=== PATIENT | female | born 1985 | race Caucasian/White ===

== ENCOUNTER 2019-04-29 11:05 | Day surgery (SDC) | payer BC ==
[2019-04-29 11:41] LABS: Absolute Lymphocytes (CBC) 2.6 K/uL (0.7-4.9); Basophils % 0.6 % (0-1.3); Hematocrit 40.1 % (36.0-45.0); Lymphocytes % 20.9 % (15.3-44.8); MPV 8.4 fL (7.6-11.3); RBC Red Blood Cell Count 4.38 M/uL (3.86-4.86)
[2019-04-29] MEDS ORDERED: Ringers Lactate 1,000 ML IV ONE (11:44)
[2019-04-29] MEDS ORDERED: METHYLENE BLUE 0.5% 10 ML AMP ONE (12:04)
[2019-04-29] MEDS ORDERED: FENTANYL CITR 100 MCG/2 ML ONE ×2 (12:09→12:24)
[2019-04-29] MEDS ORDERED: MIDAZOLAM HCL 2 MG/2 ML INJ ONE (12:24)
[2019-04-29] MEDS ORDERED: LIDOCAINE 2% MPF 5 ML VIAL ONE (12:24)
[2019-04-29] MEDS ORDERED: PROPOFOL 200 MG/20 ML VIAL IV ONE (12:24)
[2019-04-29] MEDS ORDERED: ROCURONIUM 50 MG/5 ML VIAL IV ONE (12:24)
[2019-04-29] MEDS: CEFAZOLIN/SWI 1gm 1 GM/10 ML SYR ONE ×3 (12:55→13:15)
[2019-04-29] MEDS ORDERED: GLYCOPYRROLATE 0.2 MG/ML SYR ONE (13:27)
[2019-04-29] MEDS ORDERED: ONDANSETRON 4 MG/2 ML VIAL ONE (13:27)
[2019-04-29] MEDS ORDERED: KETOROLAC 30 MG/ML INJ ONE (13:27)
[2019-04-29] MEDS ORDERED: NEOSTIGMINE 1 MG/ML -5 ML ONE (13:27)
[2019-04-29] MEDS: HYDROMORPHONE HCL 1 MG/ML INJ ONE ×2 (14:05→14:15)
[2019-04-29 14:18] VITALS: O2SAT 96
[2019-04-29] MEDS ORDERED: HYDROCODONE/APAP 7.5/325 MG TAB ONE (14:40)
[2019-04-29 14:56] VITALS: BP 110/80; TEMP 98
--- NOTE | 2019-04-30 01:08 | OP ---
Date of Procedure: 04/29/2019 Surgeon: Daljit Mcneil MD Preoperative Diagnosis: Infected pilonidal cyst. Postoperative Diagnosis: Infected pilonidal cyst. Procedure: Wide excision of pilonidal infected cyst with layered closure. Estimated Blood Loss: Minimal. Specimens: Pus and cyst. Findings: As above. Anesthesia: General. Complications: None. Drains: [place] quarter-inch. Disposition: Patient tolerated the procedure, in stable condition, taken to Recovery in good general condition. Procedure In Detail: Patient was brought to the OR and placed in supine position. General anesthesi a was begun. Patient was placed in the prone position, prepped and draped in usual sterile fashion. Marcaine 0.5% was infiltrated locally. A 15 blade was used to make an incision approximately 6 x 3 cm to excise the entire cyst, which was infected, which was red, tender, fluctuant. The incision sushil t all the way around the infected cyst all the way down to the presacral fascia and there was pus in it. Once it was excised, cultures were done. Entire cyst sent to Pathology. Wound irrigated. Blee ding controlled with cautery and then flaps created and 2-0 chromic used to approximate the subcutane ous tissue after a quarter-inch [place] drain was placed and secured with 3-0 nylon and 3-0 nylon use d to loosely close the skin. Sterile dressing was applied. Patient was awakened and taken to Recove ry in good general condition. Discharge Note: Patient will go to day surgery and home when stable. Disposition: Home. Condition: Stable. Discharge Instructions: Resume home medications and diet. Activity as tolerated. No heavy lifting. Remove outer dressing in 2 days. Shower. Keep wound clean and dry. Dry gauze to wound daily. Ty lenol No. 3 one tablet p.o. q.4 p.r.n. pain, Keflex 500 mg p.o. q.6 h. /MODL Voice ID: [id number] Report ID: [id number]
== END 2019-04-29 15:20 | disposition home or self-care (01) ==
LOC: OR 11:05
PROVIDERS: ATTEND Surgery
PROC: 0JB90ZZ Excision of Buttock Subcutaneous Tissue and Fascia, Open Approach (ICD-10-PCS; principal; 2019-04-29 12:45)
DX: L05.91 Pilonidal cyst without abscess (principal); I10 Essential (primary) hypertension; E66.9 Obesity, unspecified; Z68.30 Body mass index [BMI] 30.0-30.9, adult; F32.9 Major depressive disorder, single episode, unspecified; F17.200 Nicotine dependence, unspecified, uncomplicated
CPT/HCPCS: 87070; 85025; 36415; 87205; 81025; 88304; 87075; 11771; J2704; J2250; J3010 ×2; J1170; J2710; J0690; J7120; J2405

== ENCOUNTER 2021-02-09 18:41 | Emergency (ER) | payer BC, SELFPAY ==
--- OUTSIDE RECORDS SUMMARY | 2021-02-09 18:44 | XMS REPORT | Continuity of Care Document ---
:[address] [facility] t Address [address] [place] [address] Care Team Providers Name Role Phone FREDDIE BURLESON Attending Clinician Unavailable Problems This patient has no known problems. Allergies, Adverse Reactions, Alerts This patient has no known allergies or adverse reactions. Medications This patient has no known medications. Procedures This patient has no known procedures. Encounters Start End Encounter Admission Attending Care Care Encounter Source Date/Time Date/Time Type Type Clinicians Facility Department ID 2021-01-12 2021-01-12 Outpatient SANDRA BURLESON [id number] Sandra 11:30:00 11:30:00 ALCON sen 2021-01-12 2021-01-12 Outpatient SANDRA BURLESON [id number] Sandra 08:30:00 08:30:00 ALCON sen Results This patient has no known results.
[2021-02-09] MEDS ORDERED: IBUPROFEN 400 MG TAB ONE (22:07)
[2021-02-09] MEDS ORDERED: CLINDAMYCIN 900MG/D5W 900 MG/50 ML IVPB IV ONE (22:45)
[2021-02-09] MEDS ORDERED: ONDANSETRON 4 MG/2 ML VIAL ONE (22:45)
[2021-02-09] MEDS ORDERED: MORPHINE 4 MG/ML SYR ONE (22:45)
[2021-02-09] MEDS ORDERED: NA CHLORIDE 0.9% 1,000 ML ONE (22:45)
[2021-02-09 22:54] LABS: Absolute Lymphocytes (CBC) 2.1 K/uL (0.7-4.9); Basophils % 0.3 % (0-1.3); Hematocrit 39.7 % (36.0-45.0); Lymphocytes % 21.7 % (15.3-44.8); MPV 7.6 fL (7.6-11.3); RBC Red Blood Cell Count 4.45 M/uL (3.86-4.86)
[2021-02-09 22:56] LABS: Potassium 4.2 mmol/L (3.5-5.1)
--- NOTE | 2021-02-09 23:51 | EDPHYS ---
[facility] Name: Luanne Carlin Age: 35 yrs Sex: Female : 1985 Arrival Date: 02/09/2021 Time: 18:46 Bed DX1 Private MD: ED Physician Sushant Mosley HPI: 02/09 23:43 This 35 yrs old Female presents to ER via Ambulatory with complaints of pkl Facial Swelling. 23:43 The patient presents with broken tooth/teeth, pain, swelling. Onset: The pkl symptoms/episode began/occurred today. Associated signs and symptoms: Pertinent positives: swelling, facial. 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 - Social history:: Smoking status: Patient reports the use of cigarette tobacco products, denies chronic smoking, but will smoke occasionally. ROS: 23:43 Eyes: Negative for injury, pain, redness, and discharge. pkl 23:43 ENT: Positive for dental pain, swelling left side face. 23:43 Neck: Negative for stiffness. 23:43 Cardiovascular: Negative for chest pain. 23:43 Respiratory: Negative for cough, shortness of breath. 23:43 Abdomen/GI: Negative for abdominal pain, nausea, vomiting, and diarrhea. 23:43 Back: Negative for acute changes. 23:43 : Negative for urinary symptoms. 23:43 MS/extremity: Negative for acute changes. 23:43 Skin: Negative for rash. 23:43 Neuro: Negative for altered mental status, loss of consciousness. Exam: 23:43 Eyes: Pupils equal round and reactive to light, extra-ocular motions intact. Lids and pkl lashes normal. Conjunctiva and sclera are non-icteric and not injected. Cornea within normal limits. Periorbital areas with no swelling, redness, or edema. 23:43 Head/face: Noted is swelling, that is mild, of the left side face. 23:43 Neck: Exam negative for nuchal rigidity. 23:43 Chest/axilla: Exam negative for acute changes. 23:43 Cardiovascular: Rate: normal, Rhythm: regular. 23:43 Respiratory: the patient does not display signs of respiratory distress, Respirations: normal, Breath sounds: are clear throughout. 23:43 Abdomen/GI: Exam negative for acute changes. 23:43 Back: Exam negative for acute changes. 23:43 : Exam negative for acute changes. 23:43 Musculoskeletal/extremity: Exam is negative for acute changes. 23:43 Skin: Exam negative for rash. 23:43 Neuro: Orientation: is normal, Mentation: is normal, Cranial nerves: grossly normal, Motor: is normal. Vital Signs: 18:50 BP 131 / 79; Pulse 74; Resp 16; Temp 99(O); Pulse Ox 100% ; Weight 108.86 kg; Height 5 sv ft. 5 in. (165.10 cm); Pain 5/10; 21:59 BP 132 / 82; Pulse 65; Resp 15; Pulse Ox 99% ; dh4 23:45 BP 112 / 65; Pulse 62; Resp 16; Pulse Ox 97% on R/A; dh4 18:50 Body Mass Index 39.94 (108.86 kg, 165.10 cm) sv MDM: 21:44 Patient medically screened. pkl 23:49 Data reviewed: vital signs, nurses notes, lab test result(s). ED course: Patient pkl feeling better. Advised to follow up with her Dentist in 1 to 2 days. Patient understood instructions. 02/09 22:01 Order name: CBC with Diff; Complete Time: 23:39 pkl 02/09 22:01 Order name: Chem 7; Complete Time: 23:39 pkl Administered Medications: 21:45 Drug: Ibuprofen 800 mg Route: PO; kg 22:19 Follow up: Response: No adverse reaction bb 22:18 Drug: NS 0.9% 1000 ml Route: IV; Rate: 1000 ml; Site: right antecubital; bb 23:54 Follow up: IV Status: Completed infusion; IV Intake: 1000ml bb 22:18 Drug: morphine 4 mg Route: IVP; Site: right antecubital; bb 23:55 Follow up: Response: No adverse reaction; Pain is decreased; RASS: Alert and Calm (0) bb 22:18 Drug: Zofran (Ondansetron) 4 mg Route: IVP; Site: right antecubital; bb 23:55 Follow up: Response: No adverse reaction bb 22:19 Drug: Clindamycin 900 mg Route: IVPB; Infused Over: 30 mins; Site: right antecubital; bb 22:50 Follow up: IV Status: Completed infusion; IV Intake: 50ml bb 23:55 Drug: Zofran (Ondansetron) 4 mg Route: IVP; Site: right antecubital; bb 23:55 Follow up: Response: Medication administered at discharge. bb Disposition Summary: 02/09/21 23:51 Discharge Ordered Location: Home pkl Problem: new pkl Symptoms: have improved pkl Condition: Stable pkl Diagnosis - Dental pain. Cellulitis left side face pkl Followup: pkl - With: Private Physician - When: 1 - 2 days - Reason: Re-evaluation by your physician Discharge Instructions: - Discharge Summary Sheet pkl Forms: - Medication Reconciliation Form pkl - Thank You Letter pkl - Antibiotic Education pkl - Prescription Opioid Use pkl Prescriptions: - Clindamycin HCl 300 mg Oral Capsule - take 1 capsule by ORAL route every 6 hours for 7 days; 28 capsule; Refills: 0, pkl Product Selection Permitted - Ultram 50 mg Oral Tablet - take 1 tablet by ORAL route every 6 hours As needed; 12 tablet; Refills: 0, pkl Product Selection Permitted - Zofran 4 mg Oral Tablet - take 1 tablet by ORAL route every 12 hours As needed; 6 tablet; Refills: 0, pkl Product Selection Permitted Signatures: Dispatcher [employer] Trinidad Yepez, Sushant Tejeda RN, MD MD pkl Sabrina Mchugh RN RN Sandra Hurtado RN RN kg
--- NOTE | 2021-02-09 23:51 | ER ---
Nurse's Notes [facility] Name: Luanne Carlin Age: 35 yrs Sex: Female : 1985 Arrival Date: 02/09/2021 Time: 18:46 Bed DX1 Private MD: Diagnosis: Dental pain. Cellulitis left side face Presentation: 02/09 18:49 Chief complaint: Patient states: left sided facial swelling started today, pt reports sv she needs to have a root canal on one of her teeth. Coronavirus screen: Client denies travel out of the [place] in the last 14 days. At this time, the client does not indicate any symptoms associated with coronavirus-19. Ebola Screen: No symptoms or risks identified at this time. Risk Assessment: Do you want to hurt yourself or someone else? Patient reports no desire to harm self or others. Onset of symptoms was February 09, 2021. 18:49 Method Of Arrival: Ambulatory sv 18:49 Acuity: OSMIN 4 sv 18:50 Initial Sepsis Screen: Does the patient meet any 2 criteria? No. Patient's initial sv sepsis screen is negative. Does the patient have a suspected source of infection? No. Patient's initial sepsis screen is negative. Triage Assessment: 18:49 General: Appears in no apparent distress. uncomfortable, Behavior is calm, cooperative, sv appropriate for age. Pain: Complains of pain in face and mouth. Neuro: Level of Consciousness is awake, alert, obeys commands, Oriented to person, place, time, situation, Moves all extremities. Full function. Respiratory: Respiratory effort is even, unlabored. 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 - Social history:: Smoking status: Patient reports the use of cigarette tobacco products, denies chronic smoking, but will smoke occasionally. Screenin:00 Abuse screen: Denies threats or abuse. Nutritional screening: No deficits noted. bb Tuberculosis screening: No symptoms or risk factors identified. Fall Risk None identified. Assessment: 22:00 General: Appears in no apparent distress. uncomfortable, Behavior is calm, cooperative. bb Pain: Complains of pain in mouth and face. Neuro: Level of Consciousness is awake, alert, obeys commands, Oriented to person, place, time, situation. Cardiovascular: Capillary refill < 3 seconds Patient's skin is warm and dry. Respiratory: Airway is patent Respiratory effort is even, unlabored, Respiratory pattern is regular. GI: No signs and/or symptoms were reported involving the gastrointestinal system. Derm: Skin is pink, warm \T\ dry. Musculoskeletal: Circulation, motion, and sensation intact. 23:56 Reassessment: Patient is alert, oriented x 3, equal unlabored respirations, skin bb warm/dry/pink. pt states pain has improved. Pt verbalized understanding of and agrees to plan of care discharge instructions given pt ambulated with steady gait to exit. Vital Signs: 18:50 BP 131 / 79; Pulse 74; Resp 16; Temp 99(O); Pulse Ox 100% ; Weight 108.86 kg; Height 5 sv ft. 5 in. (165.10 cm); Pain 5/10; 21:59 BP 132 / 82; Pulse 65; Resp 15; Pulse Ox 99% ; dh4 23:45 BP 112 / 65; Pulse 62; Resp 16; Pulse Ox 97% on R/A; dh4 18:50 Body Mass Index 39.94 (108.86 kg, 165.10 cm) sv ED Course: 18:46 Patient arrived in ED. mr 18:50 Triage completed. sv 18:50 Arm band placed on. sv 21:44 Sushant Mosley MD is Attending Physician. pkl 22:00 Patient has correct armband on for positive identification. bb 22:15 Initial lab(s) drawn, by me, sent to lab. Inserted saline lock: 20 gauge in right bb antecubital area, using aseptic technique. Blood collected. 23:57 No provider procedures requiring assistance completed. IV discontinued, intact, bb bleeding controlled, No redness/swelling at site. Pressure dressing applied. Administered Medications: 21:45 Drug: Ibuprofen 800 mg Route: PO; kg 22:19 Follow up: Response: No adverse reaction bb 22:18 Drug: NS 0.9% 1000 ml Route: IV; Rate: 1000 ml; Site: right antecubital; bb 23:54 Follow up: IV Status: Completed infusion; IV Intake: 1000ml bb 22:18 Drug: morphine 4 mg Route: IVP; Site: right antecubital; bb 23:55 Follow up: Response: No adverse reaction; Pain is decreased; RASS: Alert and Calm (0) bb 22:18 Drug: Zofran (Ondansetron) 4 mg Route: IVP; Site: right antecubital; bb 23:55 Follow up: Response: No adverse reaction bb 22:19 Drug: Clindamycin 900 mg Route: IVPB; Infused Over: 30 mins; Site: right antecubital; bb 22:50 Follow up: IV Status: Completed infusion; IV Intake: 50ml bb 23:55 Drug: Zofran (Ondansetron) 4 mg Route: IVP; Site: right antecubital; bb 23:55 Follow up: Response: Medication administered at discharge. bb Intake: 22:50 IV: 50ml; Total: 50ml. bb 23:54 IV: 1000ml; Total: 1050ml. bb Outcome: 23:51 Discharge ordered by . pkdeepali 23:57 Discharged to home ambulatory. bb 23:57 Condition: stable 23:57 Discharge instructions given to patient, Instructed on discharge instructions, follow up and referral plans. medication usage, Demonstrated understanding of instructions, follow-up care, medications, Prescriptions given X 3. 23:57 Patient left the ED. bb Signatures: Trinidad Torres, RN Sushant Tejeda MD MD pkl Rivera, Mary mr Sabrina Mchugh RN RN bb Huhn, Donald [facility] Sandra Joseph, SHAUNNA RN kg Corrections: (The following items were deleted from the chart) 18:52 18:50 Pulse 74bpm; Resp 16bpm; Pulse Ox 100%; 108.86 kg; Height 5 ft. 5 in.; BMI: 39.9; sv Pain 5/10; sv
[2021-02-10 00:18] VITALS: TEMP 99
[2021-02-10] MEDS ORDERED: ONDANSETRON 4 MG/2 ML VIAL ONE (00:19)
[2021-02-10 00:26] VITALS: BP 112/65; O2SAT 97
== END 2021-02-09 23:57 | disposition home or self-care (01) ==
LOC: ER 18:41
DX: L03.211 Cellulitis of face (principal); F17.210 Nicotine dependence, cigarettes, uncomplicated
CPT/HCPCS: 36415; 80048; 85025; 96361; 96365; 96375; 99284; J2405; J7030

== ENCOUNTER 2021-03-01 02:26 | Emergency (ER) | payer SELFPAY ==
--- OUTSIDE RECORDS SUMMARY | 2021-03-01 02:29 | XMS REPORT | Continuity of Care Document ---
:1985 Author Organization [facility] t Address [address] [place] [address] Care Team Providers Name Role Phone FREDDIE [...] Department ID 2021-01-12 2021-01-12 Outpatient SANDRA BURLESON [id number] Sandra 11:30:00 11:30:00 ALCON sen 2021-01-12 2021-01-12 Outpatient SANDRA BURLESON [id number] Sandra 08:30:00 08:30:00 ALCON sen Results This patient has no known results.
[2021-03-01 03:00] LABS: Urine Blood Negative (Negative); Urine Glucose Negative (Negative); Urine Protein Negative (Negative); Urine Specific Gravity >=1.030 (1.005-1.030)
[2021-03-01] MEDS ORDERED: MORPHINE 4 MG/ML SYR ONE (03:27)
[2021-03-01] MEDS ORDERED: NA CHLORIDE 0.9% 500 ML ONE (03:28)
[2021-03-01] MEDS ORDERED: ONDANSETRON 4 MG/2 ML VIAL ONE (03:28)
[2021-03-01] MEDS ORDERED: NA CHLORIDE 0.9% 1,000 ML ONE (03:40)
[2021-03-01 04:05] LABS: Absolute Lymphocytes (CBC) 3.7 K/uL (0.7-4.9); Basophils % 0.5 % (0-1.3); Hematocrit 40.5 % (36.0-45.0); Lymphocytes % 38.3 % (15.3-44.8); MPV 8.2 fL (7.6-11.3); RBC Red Blood Cell Count 4.58 M/uL (3.86-4.86)
[2021-03-01 04:14] LABS: ALT/SGPT 66 U/L (12-78); AST/SGOT 32 U/L (15-37); Albumin 3.6 g/dL (3.4-5.0); Alkaline Phosphatase 91 U/L (45-117); BUN Blood Urea Nitrogen 12 mg/dL (7-18); Bicarbonate 22 mmol/L (21-32); Bilirubin Direct < 0.1 mg/dL (0-0.2); Bilirubin Total 0.2 mg/dL (0.2-1.0); Glucose Level 103 mg/dL (74-106); Lipase 150 U/L (73-393); Potassium 3.7 mmol/L (3.5-5.1); Protein, Total 7.2 g/dL (6.4-8.2); Sodium Level 141 mmol/L (136-145)
--- NOTE | 2021-03-01 04:28 | ER ---
Nurse's Notes [facility] Name: Luanne Carlin Age: 35 yrs Sex: Female : 1985 Arrival Date: 03/01/2021 Time: 02:33 Bed 19 Private MD: Diagnosis: Cholelithiasis Presentation: 03/01 02:39 Chief complaint: Patient states: Pt states just before midnight she started to have wg right flank pain radiating into her back. Pt states she became diaphoretic and took Tylenol and Pepto without relief. Pt states she felt nauseated but denies CP, vomiting, dizziness, SOB, headache or Abd pain. Coronavirus screen: Vaccine status: Patient reports being unvaccinated. Client denies travel out of the [place] in the last 14 days. Client reports previous positive COVID test result. Date of collection: November 16, 2020. Ebola Screen: Patient negative for fever greater than or equal to 101.5 degrees Fahrenheit, and additional compatible Ebola Virus Disease symptoms Patient denies exposure to infectious person. Patient denies travel to an Ebola-affected area in the 21 days before illness onset. No symptoms or risks identified at this time. Initial Sepsis Screen: Does the patient meet any 2 criteria? No. Patient's initial sepsis screen is negative. Does the patient have a suspected source of infection? No. Patient's initial sepsis screen is negative. Risk Assessment: Do you want to hurt yourself or someone else? Patient reports no desire to harm self or others. Onset of symptoms was February 28, 2021 at 23:30. Care prior to arrival: Medication(s) given: Tylenol, 1000 mg. 02:39 Method Of Arrival: Ambulatory 02:39 Acuity: OSMIN 3 Triage Assessment: 02:44 General: Appears uncomfortable, obese, well groomed, Behavior is cooperative, wg appropriate for age, anxious. Pain: Complains of pain in Right flank pain radiating into back. EENT: No deficits noted. Neuro: No deficits noted. Cardiovascular: No deficits noted. Respiratory: No deficits noted. GI: Reports nausea. : No deficits noted. Derm: No deficits noted. Musculoskeletal: No deficits noted. 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 - Social history:: Smoking status: Patient/guardian denies using tobacco, Patient uses alcohol, Patient/guardian denies using street drugs, IV drugs. - Code Status:: Full code. Screenin:23 Abuse screen: Denies threats or abuse. Nutritional screening: No deficits noted. lh3 Tuberculosis screening: No symptoms or risk factors identified. Fall Risk None identified. Assessment: 04:23 General: Appears in no apparent distress. Behavior is calm, cooperative, appropriate lh3 for age. 04:23 GI: Reports lower abdominal pain. lh3 Vital Signs: 02:39 BP 131 / 84; Pulse 70; Resp 18; Temp 98.9; Pulse Ox 100% on R/A; Weight 104.33 kg; wg Height 5 ft. 5 in. (165.10 cm); Pain 8/10; 04:39 BP 128 / 82; Pulse 68; Resp 18; Pulse Ox 99% on R/A; lh3 02:39 Body Mass Index 38.27 (104.33 kg, 165.10 cm) wg ED Course: 02:33 Patient arrived in ED. bp1 02:42 Triage completed. wg 02:45 Arm band placed on right wrist. wg 02:50 Sushant Mosley MD is Attending Physician. pkl 03:01 Urine Dipstick-Ancillary Sent. df1 03:06 Chest Single View XRAY Sent. df1 03:07 Inserted saline lock: 22 gauge in right antecubital area, using aseptic technique. df1 Blood collected. 03:13 Chest Single View XRAY In Process Unspecified. EDMS 03:37 US Abdomen Limited Sent. df1 03:37 Urine --Ancillary (enter results) Sent. df1 03:54 US Abdomen Limited In Process Unspecified. EDMS 04:23 Narda Saha, SHAUNNA is Primary Nurse. lh3 04:23 Patient has correct armband on for positive identification. lh3 04:23 No provider procedures requiring assistance completed. IV discontinued, bleeding lh3 controlled. 04:26 Kevin Graham MD is Referral Physician. pkl Administered Medications: 03:25 Drug: NS 0.9% 500 ml Route: IV; Rate: bolus; Site: right antecubital; df1 04:38 Follow up: Response: No adverse reaction; IV Status: Completed infusion lh3 03:25 Drug: morphine 4 mg Route: IVP; Site: right antecubital; df1 04:38 Follow up: Response: No adverse reaction lh3 03:25 Drug: Zofran (Ondansetron) 4 mg Route: IVP; Site: right antecubital; df1 04:38 Follow up: Response: No adverse reaction lh3 04:38 Drug: Motrin (ibuprofen) 600 mg Route: PO; lh3 04:39 Follow up: Response: No adverse reaction lh3 04:38 Drug: Tylenol 650 mg Route: PO; lh3 04:39 Follow up: Response: No adverse reaction 3 Outcome: 04:27 Discharge ordered by . pkdeepali 04:40 Discharged to home ambulatory. 3 04:40 Condition: good 04:40 Discharge instructions given to patient, Instructed on discharge instructions, follow up and referral plans. medication usage, Demonstrated understanding of instructions, follow-up care, medications, Prescriptions given X 1. 04:41 Patient left the ED. 3 Signatures: Dispatcher [employer] EDMS Sushant Mosley MD MD pkBecky Buenrostro Latisha, RN RN [facility] Lloyd Alcocer RN wg Furlich, Dawn df1
--- NOTE | 2021-03-01 04:28 | EDPHYS ---
Physician Documentation [facility] Name: Luanne Carlin Age: 35 yrs Sex: Female : 1985 Arrival Date: 03/01/2021 Time: 02:33 Bed 19 Private MD: ED Physician Sushant Mosley HPI: 03/01 03:00 This 35 yrs old Female presents to ER via Ambulatory with complaints of Flank pkl Pain. 03:00 The patient presents with abdominal pain in the right upper quadrant. Onset: The pkl symptoms/episode began/occurred just prior to arrival, 1 hour(s) ago. The symptoms radiate to right back. Associated signs and symptoms: Pertinent positives: nausea, diaphoretic. The patient has not experienced similar symptoms in the past. 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 - Social history:: Smoking status: Patient/guardian denies using tobacco, Patient uses alcohol, Patient/guardian denies using street drugs, IV drugs. - Code Status:: Full code. ROS: 03:00 Eyes: Negative for injury, pain, redness, and discharge, ENT: Negative for injury, pkl pain, and discharge, Neck: Negative for injury, pain, and swelling, Cardiovascular: Negative for chest pain, palpitations, and edema, Respiratory: Negative for shortness of breath, cough, wheezing, and pleuritic chest pain. 03:00 Abdomen/GI: Positive for abdominal pain, nausea, of the right upper quadrant. 03:00 Back: Negative for acute changes. 03:00 : Negative for urinary symptoms. 03:00 MS/extremity: Negative for acute changes. 03:00 Skin: Negative for rash. 03:00 Neuro: Negative for altered mental status, loss of consciousness. Exam: 03:00 Head/Face: Normocephalic, atraumatic. Eyes: Pupils equal round and reactive to light, pkl extra-ocular motions intact. Lids and lashes normal. Conjunctiva and sclera are non-icteric and not injected. Cornea within normal limits. Periorbital areas with no swelling, redness, or edema. ENT: Nares patent. No nasal discharge, no septal abnormalities noted. Tympanic membranes are normal and external auditory canals are clear. Oropharynx with no redness, swelling, or masses, exudates, or evidence of obstruction, uvula midline. Mucous membranes moist. Neck: Trachea midline, no thyromegaly or masses palpated, and no cervical lymphadenopathy. Supple, full range of motion without nuchal rigidity, or vertebral point tenderness. No Meningismus. Chest/axilla: Normal chest wall appearance and motion. Nontender with no deformity. No lesions are appreciated. Cardiovascular: Regular rate and rhythm with a normal S1 and S2. No gallops, murmurs, or rubs. Normal PMI, no JVD. No pulse deficits. Respiratory: Lungs have equal breath sounds bilaterally, clear to auscultation and percussion. No rales, rhonchi or wheezes noted. No increased work of breathing, no retractions or nasal flaring. 03:00 Abdomen/GI: Bowel sounds: normal, Palpation: soft, mild abdominal tenderness, in the right upper quadrant. 03:00 Back: Exam negative for acute changes. 03:00 : Exam negative for acute changes. 03:00 Musculoskeletal/extremity: Exam is negative for acute changes. 03:00 Skin: Exam negative for rash. 03:00 Neuro: Orientation: is normal, Mentation: is normal, Cranial nerves: grossly normal, Motor: is normal. Vital Signs: 02:39 BP 131 / 84; Pulse 70; Resp 18; Temp 98.9; Pulse Ox 100% on R/A; Weight 104.33 kg; wg Height 5 ft. 5 in. (165.10 cm); Pain 8/10; 04:39 BP 128 / 82; Pulse 68; Resp 18; Pulse Ox 99% on R/A; lh3 02:39 Body Mass Index 38.27 (104.33 kg, 165.10 cm) wg MDM: 02:50 Patient medically screened. pkl 04:20 Data reviewed: vital signs, nurses notes, lab test result(s), EKG, radiologic studies, pkl ultrasound. 04:23 ED course: Patient feeling better. Discussed lab and imaging studies with patient. pkl Advised to follow up with Dr. Graham ( General Surgery ) in 2 to 3 days. Patient understood instructions. 09/14 02:46 Order name: Basic Metabolic Panel; Complete Time: 04:18 wg 03/01 02:46 Order name: CBC with Diff; Complete Time: 04:09 wg 03/01 02:46 Order name: Hepatic Function; Complete Time: 04:18 wg 03/01 02:46 Order name: Lipase; Complete Time: 04:18 wg 03/01 03:00 Order name: Urine Dipstick-Ancillary; Complete Time: 04:00 EDMS 03/01 03:01 Order name: Urine --Ancillary (enter results) mw2 03/01 02:57 Order name: Chest Single View XRAY wg 03/01 02:58 Order name: US Abdomen Limited pkl 03/01 03:01 Order name: Urine --Ancillary EDMS 03/01 03:06 Order name: Urine --Ancillary (enter results) df1 03/01 02:46 Order name: IV Saline Lock; Complete Time: 03:05 wg 03/01 02:46 Order name: Labs collected and sent; Complete Time: 03:05 wg 03/01 02:46 Order name: EKG - Nurse/Tech; Complete Time: 03:18 wg 03/01 02:47 Order name: Urine Test (obtain specimen); Complete Time: 03:01 wg Administered Medications: 03:25 Drug: NS 0.9% 500 ml Route: IV; Rate: bolus; Site: right antecubital; df1 04:38 Follow up: Response: No adverse reaction; IV Status: Completed infusion lh3 03:25 Drug: morphine 4 mg Route: IVP; Site: right antecubital; df1 04:38 Follow up: Response: No adverse reaction lh3 03:25 Drug: Zofran (Ondansetron) 4 mg Route: IVP; Site: right antecubital; df1 04:38 Follow up: Response: No adverse reaction lh3 04:38 Drug: Motrin (ibuprofen) 600 mg Route: PO; lh3 04:39 Follow up: Response: No adverse reaction lh3 04:38 Drug: Tylenol 650 mg Route: PO; lh3 04:39 Follow up: Response: No adverse reaction lh3 Disposition Summary: 03/01/21 04:27 Discharge Ordered Location: Home pkl Problem: new pkl Symptoms: have improved pkl Condition: Stable pkl Diagnosis - Cholelithiasis pkl Followup: pkl - With: Kevin Graham MD - When: 2 - 3 days - Reason: Re-evaluation by your physician Discharge Instructions: - Discharge Summary Sheet pkl Forms: - Medication Reconciliation Form pkl - Thank You Letter pkl - Antibiotic Education pkl - Prescription Opioid Use pkl Prescriptions: - Cipro 500 mg Oral Tablet - take 1 tablet by ORAL route every 12 hours for 7 days; 14 tablet; Refills: 0, pkl Product Selection Permitted Signatures: Dispatcher [employer] EDSushant Roman MD MD pkl Narda Saha RN RN lh3 Lloyd Alcocer RN Katherine Metz df1 Corrections: (The following items were deleted from the chart) 03:00 02:47 Chest Pa And Lat (2 Views)+[email or web address] ordered. EDMA EDMS
[2021-03-01 04:48] VITALS: TEMP 98.9
[2021-03-01 04:49] VITALS: BP 128/82; O2SAT 99
[2021-03-01] MEDS ORDERED: ACETAMINOPHEN 325 MG TABLET ONE (04:51)
[2021-03-01] MEDS ORDERED: IBUPROFEN 200 MG TAB PO ONE (04:51)
[2021-03-01 06:06] LABS: Urine Specific Gravity/Preg >1.030 (1.005-1.030)
[2021-03-01 06:06] LABS: Urine Specific Gravity/Preg >1.030 (1.005-1.030)
--- NOTE | 2021-03-01 08:46 | RAD REPORT ---
EXAM DESCRIPTION: US - Abdomen Exam Limited - 03/01/2021 3:54 am CLINICAL HISTORY: ABD PAIN COMPARISON: No comparisons FINDINGS: The gallbladder demonstrates several shadowing gallstones. No pericholecystic fluid or gal lbladder wall thickening. The common bile duct is normal measuring 4 mm. The liver demonstrates no findings of intrahepatic biliary dilatation. IMPRESSION: Cholelithiasis.
--- NOTE | 2021-03-01 08:52 | RAD REPORT ---
EXAM DESCRIPTION: RAD - Chest Single View - 03/01/2021 3:13 am CLINICAL HISTORY: CHEST PAIN Chest pain. COMPARISON: No comparisons FINDINGS: Portable technique limits examination quality. The lungs are underinflated but grossly clear. The heart is normal in size. No displaced fractures. IMPRESSION: No acute intrathoracic process suspected.
--- NOTE | 2021-03-01 10:05 | EKG ---
Test Date: 2021-03-01 Test Time: 03:12:33 Medical Insurance Claims Processor: FLORA MEASUREMENT RESULTS: Intervals: Rate: 73 [place]: 142 QRSD: 86 QT: 406 QTc: 447 [place]: P: 50 [place]: 142 QRS: 53 T: 50 INTERPRETIVE STATEMENTS: Normal sinus rhythm Normal ECG No previous ECG available for comparison Electronically Signed On 03-01-21 10:04:32 CDT by Gopal Roque
== END 2021-03-01 04:41 | disposition home or self-care (01) ==
LOC: ER 02:26
DX: K80.20 Calculus of gallbladder without cholecystitis without obstruction (principal); I10 Essential (primary) hypertension; F32.9 Major depressive disorder, single episode, unspecified
CPT/HCPCS: 36415; 71045; 76705; 80048; 80076; 81003; 81025; 83690; 85025; 93005; 96361; 96374; 96375; 99284; J2405; J7030; J7040

== ENCOUNTER 2021-03-15 17:35 | Emergency (ER) | payer SELFPAY ==
[2021-03-15 18:45] LABS: Absolute Lymphocytes (CBC) 2.9 K/uL (0.7-4.9); Basophils % 0.9 % (0-1.3); Hematocrit 41.3 % (36.0-45.0); MPV 7.7 fL (7.6-11.3); RBC Red Blood Cell Count 4.68 M/uL (3.86-4.86)
[2021-03-15] MEDS ORDERED: ONDANSETRON 4 MG/2 ML VIAL ONE ×2 (19:14→20:28)
[2021-03-15] MEDS ORDERED: MORPHINE 4 MG/ML SYR ONE ×2 (19:14→20:28)
[2021-03-15 19:15] LABS: Albumin 3.8 g/dL (3.4-5.0); Bilirubin Direct 0.1 mg/dL (0-0.2); Bilirubin Total 0.3 mg/dL (0.2-1.0); Potassium 3.8 mmol/L (3.5-5.1); Protein, Total 7.5 g/dL (6.4-8.2)
--- NOTE | 2021-03-15 19:36 | RAD REPORT ---
EXAM DESCRIPTION: US - Abdomen Exam Limited - 03/15/2021 7:26 pm CLINICAL HISTORY: Abdominal pain. COMPARISON: March 01, 2021 FINDINGS: The gallbladder wall is upper limits normal thickness. Multiple gallstones. The biliary tree is normal caliber. IMPRESSION: Cholelithiasis
--- NOTE | 2021-03-15 19:59 | ER ---
Nurse's Notes [facility] Name: Luanne Carlin Age: 35 yrs Sex: Female : 1985 Arrival Date: 03/15/2021 Time: 17:36 Bed 23 Private MD: Diagnosis: Right upper quadrant pain;Nausea;Other cholelithiasis without obstruction Presentation: 03/15 17:52 Chief complaint: Patient states: See in ED for Gallstones a few weeks ago. Unable to 5 afford to pay up front. This flared up 1 week ago. Coronavirus screen: Vaccine status:. Ebola Screen: Patient negative for fever greater than or equal to 101.5 degrees Fahrenheit, and additional compatible Ebola Virus Disease symptoms Patient denies exposure to infectious person. No symptoms or risks identified at this time. Initial Sepsis Screen: Does the patient meet any 2 criteria? No. Patient's initial sepsis screen is negative. Does the patient have a suspected source of infection? No. Patient's initial sepsis screen is negative. Risk Assessment: Do you want to hurt yourself or someone else? Patient reports no desire to harm self or others. 17:52 Method Of Arrival: Ambulatory [facility] 17:52 Acuity: OSMIN 3 5 Triage Assessment: 17:57 General: Appears uncomfortable, Behavior is calm, cooperative. Pain: Complains of pain ch5 in epigastric area. - Immunization history:: Adult Immunizations up to date. - Social history:: Smoking status: Patient denies any tobacco usage or history of. Patient uses alcohol, occasionally. Screenin:58 Abuse screen: Denies threats or abuse. Denies injuries from another. Nutritional ch5 screening: No deficits noted. Tuberculosis screening: No symptoms or risk factors identified. Fall Risk None identified. Assessment: 18:01 General: Appears in no apparent distress. comfortable, Behavior is calm, cooperative. aj2 Pain: Complains of pain in right upper quadrant Pain radiates to epigastric area and right upper quadrant Pain currently is 7 out of 10 on a pain scale. Quality of pain is described as gnawing, Pain began Is intermittent, episodic, Alleviated by nothing. Aggravated by eating, drinking, increased activity, Also complains of nausea, Current management - is no interventions. 19:11 Pain: Complains of pain in epigastric area Pain radiates to epigastric area Pain. aj2 Vital Signs: 17:52 BP 127 / 67; Pulse 86; Resp 20 S; Temp 97.8(T); Pulse Ox 99% on R/A; Weight 111.13 kg; ch5 Height 5 ft. 5 in. (165.10 cm); Pain 7/10; 18:01 BP 127 / 67; Pulse 84; Resp 18; Temp 97.8; Pulse Ox 100% ; aj2 19:00 BP 132 / 72; Pulse 85; Resp 18; Pulse Ox 99% on R/A; df1 20:00 BP 131 / 85; Pulse 85; Resp 18; Pulse Ox 100% on R/A; df1 17:52 Body Mass Index 40.77 (111.13 kg, 165.10 cm) 5 ED Course: 17:36 Patient arrived in ED. ds1 17:52 Gareth Dumont, RN is Primary Nurse. 5 17:57 Triage completed. 5 17:57 Arm band placed on right wrist. 5 17:58 Patient has correct armband on for positive identification. Bed in low position. Call [facility] light in reach. 17:58 No provider procedures requiring assistance completed. ch5 18:01 No apparent distress. Resting quietly. aj2 18:01 Patient has correct armband on for positive identification. aj2 18:11 Warren Gonzales PA is PHCP. jr8 18:11 Roddy Colón MD is Attending Physician. jr8 18:33 Basic Metabolic Panel Sent. aj2 18:33 CBC with Diff Sent. aj2 18:33 Hepatic Function Sent. aj2 18:33 Lipase Sent. aj2 19:26 US Abdomen Limited In Process Unspecified. EDMS 20:27 Patient did not have IV access during this emergency room visit. IV discontinued, df1 intact. Administered Medications: 18:47 Drug: Zofran (Ondansetron) 4 mg Route: IVP; Site: right antecubital; aj2 18:48 Drug: morphine 4 mg Route: IVP; Site: right antecubital; aj2 20:04 Drug: Zofran (Ondansetron) 4 mg Route: IVP; Site: right antecubital; df1 20:05 Drug: morphine 4 mg Route: IVP; Site: right antecubital; df1 Outcome: 19:58 Discharge ordered by MD. jr8 20:26 Discharged to home df1 20:26 Condition: good 20:26 Discharge instructions given to patient, Instructed on discharge instructions, follow up and referral plans. Demonstrated understanding of instructions, follow-up care, medications, Prescriptions given X 1. 20:27 Patient left the ED. df1 Signatures: Dispatcher [employer] EDID Kailey Kay ds1 Warren Gonzales PA PA jr8 Brandon Evans aj2 Gareth Dumnot RN RN ch5 Katherine Metz df1 Corrections: (The following items were deleted from the chart) 17:57 17:57 PMHx: Hypertensive disorder; ch5 ch5 17:57 17:57 PMHx: depressive disorder; ch5 ch5
--- NOTE | 2021-03-15 19:59 | EDPHYS ---
Physician Documentation [facility] Name: Luanne Carlin Age: 35 yrs Sex: Female : 1985 Arrival Date: 03/15/2021 Time: 17:36 Bed 23 Private MD: Roddy Carroll HPI: 03/15 19:48 This 35 yrs old Female presents to ER via Ambulatory with complaints of jr8 Gallbladder Pain. 19:48 Onset: The symptoms/episode began/occurred suddenly. Associated signs and symptoms: jr8 Pertinent positives: vomiting. Modifying factors: The patient symptoms are alleviated by nothing, the patient symptoms are aggravated by eating food. The patient has experienced similar episodes in the past, a few times. The patient has not recently seen a physician. Patient stated that she was recently worked up earlier this month for gallbladder pain and was found to have cholelithiasis without any other acute finding. Was referred to general surgery for further evaluation of her gallbladder. Since then has had a couple other flares but it been manageable. Today again had gotten worse. Stated that she had not been able to follow-up with surgery yet due to financial status but has been placed on the [facility] system to see if they could help her, but again that the pain had worsened and intensified today. - Immunization history:: Adult Immunizations up to date. - Social history:: Smoking status: Patient denies any tobacco usage or history of. Patient uses alcohol, occasionally. ROS: 19:48 Eyes: Negative for injury, pain, redness, and discharge, ENT: Negative for injury, jr8 pain, and discharge, Neck: Negative for injury, pain, and swelling, Cardiovascular: Negative for chest pain, palpitations, and edema, Respiratory: Negative for shortness of breath, cough, wheezing, and pleuritic chest pain, Back: Negative for injury and pain, MS/Extremity: Negative for injury and deformity, Skin: Negative for injury, rash, and discoloration, Neuro: Negative for headache, weakness, numbness, tingling, and seizure. 19:48 Abdomen/GI: Positive for abdominal pain, nausea and vomiting, Negative for diarrhea, constipation, abdominal cramps, abdominal distension, hematemesis, black/tarry stool. Exam: 19:48 Eyes: Pupils equal round and reactive to light, extra-ocular motions intact. Lids and jr8 lashes normal. Conjunctiva and sclera are non-icteric and not injected. Cornea within normal limits. Periorbital areas with no swelling, redness, or edema. ENT: Nares patent. No nasal discharge, no septal abnormalities noted. Tympanic membranes are normal and external auditory canals are clear. Oropharynx with no redness, swelling, or masses, exudates, or evidence of obstruction, uvula midline. Mucous membranes moist. Neck: Trachea midline, no thyromegaly or masses palpated, and no cervical lymphadenopathy. Supple, full range of motion without nuchal rigidity, or vertebral point tenderness. No Meningismus. Cardiovascular: Regular rate and rhythm with a normal S1 and S2. No gallops, murmurs, or rubs. Normal PMI, no JVD. No pulse deficits. Respiratory: Lungs have equal breath sounds bilaterally, clear to auscultation and percussion. No rales, rhonchi or wheezes noted. No increased work of breathing, no retractions or nasal flaring. Back: No spinal tenderness. No costovertebral tenderness. Full range of motion. Skin: Warm, dry with normal turgor. Normal color with no rashes, no lesions, and no evidence of cellulitis. MS/ Extremity: Pulses equal, no cyanosis. Neurovascular intact. Full, normal range of motion. Neuro: Awake and alert, GCS 15, oriented to person, place, time, and situation. Cranial nerves II-XII grossly intact. Motor strength 5/5 in all extremities. Sensory grossly intact. Cerebellar exam normal. Normal gait. 19:48 Abdomen/GI: Inspection: abdomen appears normal, Bowel sounds: active, all quadrants, Palpation: soft, in all quadrants, moderate abdominal tenderness, in the epigastric area and right upper quadrant, mass, is not appreciated, rebound tenderness, is not appreciated, voluntary guarding, is not appreciated, involuntary guarding, is not appreciated, no appreciated organomegaly, Indicators: McBurney's point is not tender, Amanda's sign is negative, Liver: tenderness, is not appreciated. Vital Signs: 17:52 BP 127 / 67; Pulse 86; Resp 20 S; Temp 97.8(T); Pulse Ox 99% on R/A; Weight 111.13 kg; ch5 Height 5 ft. 5 in. (165.10 cm); Pain 7/10; 18:01 BP 127 / 67; Pulse 84; Resp 18; Temp 97.8; Pulse Ox 100% ; aj2 19:00 BP 132 / 72; Pulse 85; Resp 18; Pulse Ox 99% on R/A; df1 20:00 BP 131 / 85; Pulse 85; Resp 18; Pulse Ox 100% on R/A; df1 17:52 Body Mass Index 40.77 (111.13 kg, 165.10 cm) ch5 MDM: 18:13 Patient medically screened. jr8 19:57 Data reviewed: vital signs, nurses notes, lab test result(s), radiologic studies, jr8 ultrasound. Data interpreted: Pulse oximetry: on room air is 100 %. Interpretation: normal. Counseling: I had a detailed discussion with the patient and/or guardian regarding: the historical points, exam findings, and any diagnostic results supporting the discharge/admit diagnosis, lab results, radiology results, the need for outpatient follow up, a general surgeon, to return to the emergency department if symptoms worsen or persist or if there are any questions or concerns that arise at home. ED course: And already enrolled in the [facility] system to try and get her gallbladder removed. Patient is hemodynamically stable here and afebrile. Lab work unremarkable and ultrasound still shows cholelithiasis without significant change. I have discussed this with the patient and that at this time we will try another short antibiotic course and some pain management. Talked her about her diet modifications as well. Unfortunately patient is able to tolerate fluids has no lab or imaging's abnormalities that require emergent surgical evaluation. As such does not meet admission criteria as of now. Discussed with her that if he were to worsen to come back for further evaluation as well. In the meantime to continue to follow-up with the [facility] system. Patient good with this at this time.. 03/15 18:13 Order name: Basic Metabolic Panel; Complete Time: :03/15 18:13 Order name: CBC with Diff; Complete Time: :03/15 18:13 Order name: Hepatic Function; Complete Time: :03/15 18:13 Order name: Lipase; Complete Time: :03/15 18:40 Order name: US Abdomen Limited; Complete Time: 19:51 03/15 18:13 Order name: IV Saline Lock; Complete Time: 18:32 jr8 03/15 18:13 Order name: Labs collected and sent; Complete Time: 18:33 jr8 Administered Medications: 18:47 Drug: Zofran (Ondansetron) 4 mg Route: IVP; Site: right antecubital; aj2 18:48 Drug: morphine 4 mg Route: IVP; Site: right antecubital; aj2 20:04 Drug: Zofran (Ondansetron) 4 mg Route: IVP; Site: right antecubital; df1 20:05 Drug: morphine 4 mg Route: IVP; Site: right antecubital; df1 Disposition Summary: 03/15/21 19:58 Discharge Ordered Location: Home jr8 Problem: new jr8 Symptoms: have improved jr8 Condition: Stable jr8 Diagnosis - Right upper quadrant pain jr8 - Nausea jr8 - Other cholelithiasis without obstruction jr8 Followup: jr8 - With: Private Physician - When: 2 - 3 days - Reason: Recheck today's complaints, Continuance of care, Re-evaluation by your physician Discharge Instructions: - Discharge Summary Sheet jr8 - Abdominal Pain, Adult jr8 - Biliary Colic, Adult jr8 - Nausea, Adult jr8 Forms: - Medication Reconciliation Form jr8 - Thank You Letter jr8 - Antibiotic Education jr8 - Prescription Opioid Use jr8 Prescriptions: - Cipro 500 mg Oral tablet - take 1 tablet by ORAL route 2 times per day for 5 days; 10 tablet; Refills: 0, jr8 Product Selection Permitted - promethazine 25 mg Oral Tablet - take 1 tablet by ORAL route every 6 hours As needed; 20 tablet; Refills: 0, jr8 Product Selection Permitted Addendum: 03/17/2021 10:57 Co-signature as Attending Physician, Roddy Colón MD I agree with the assessment and c parada plan of care. Signatures: Dispatcher [employer] Roddy Dominguez MD MD cha Roszak, Josh, PA PA jr8 Brandon Evans aj2 Gareth Dumont RN RN [email or web address] Katherine Metz df1 Corrections: (The following items were deleted from the chart) 03/15 17:57 17:57 PMHx: Hypertensive disorder; ch5 ch5 17:57 17:57 PMHx: depressive disorder; ch5 ch5 19:51 19:48 Patient stated that she was recently worked up during this past month for jr8 gallbladder pain and was found to have cholelithiasis without any other acute finding. Was referred to general surgery for further evaluation of her gallbladder. Since then has had a couple other flares but it been manageable. Today again had gotten worse. Stated that she had not been able to follow-up with surgery yet due to financial status but has been placed on the [facility] system to see if they could help her, but again that the pain had worsened and intensified today. jr8
[2021-03-15 20:32] VITALS: TEMP 97.8
[2021-03-15 20:35] VITALS: BP 131/85; O2SAT 100
== END 2021-03-15 20:27 | disposition home or self-care (01) ==
LOC: ER 17:35
DX: K80.80 Other cholelithiasis without obstruction (principal); R10.11 Right upper quadrant pain
CPT/HCPCS: 36415; 76705; 80048; 80076; 83690; 85025; 96374; 96375; 99284; J2405

== ENCOUNTER 2021-04-01 01:47 | Emergency (ER) | payer SELFPAY ==
[2021-04-01 02:48] LABS: Absolute Lymphocytes (CBC) 3.3 K/uL (0.7-4.9); Basophils % 0.6 % (0-1.3); Lymphocytes % 31.8 % (15.3-44.8); RBC Red Blood Cell Count 4.62 M/uL (3.86-4.86)
[2021-04-01 03:00] LABS: ALT/SGPT 57 U/L (12-78); AST/SGOT 27 U/L (15-37); Albumin 3.6 g/dL (3.4-5.0); Alkaline Phosphatase 82 U/L (45-117); BUN Blood Urea Nitrogen 9 mg/dL (7-18); Bicarbonate 27 mmol/L (21-32); Bilirubin Direct < 0.1 mg/dL (0-0.2); Bilirubin Total 0.2 mg/dL (0.2-1.0); Glucose Level 111 mg/dL (74-106); Lipase 86 U/L (73-393); Potassium 3.9 mmol/L (3.5-5.1); Protein, Total 7.1 g/dL (6.4-8.2); Sodium Level 140 mmol/L (136-145)
[2021-04-01] MEDS ORDERED: MORPHINE 4 MG/ML SYR ONE ×2 (03:00→03:37)
[2021-04-01] MEDS ORDERED: ONDANSETRON 4 MG/2 ML VIAL ONE (03:01)
--- NOTE | 2021-04-01 03:13 | ER ---
Nurse's Notes [facility] Name: Luanne Carlin Age: 35 yrs Sex: Female : 1985 Arrival Date: 04/01/2021 Time: 01:50 Bed 24 Private MD: Diagnosis: Other cholelithiasis without obstruction Presentation: 04/01 02:19 Chief complaint: Patient states: RUQ, RLQ, BACK PAIN SINCE 2100 WITH NAUSEA AND sj1 VOMITING. HX OF GALLSTONES. TAKING CIPRO. Coronavirus screen: Vaccine status: Patient reports being unvaccinated. Ebola Screen: Patient negative for fever greater than or equal to 101.5 degrees Fahrenheit, and additional compatible Ebola Virus Disease symptoms Patient denies exposure to infectious person. Patient denies travel to an Ebola-affected area in the 21 days before illness onset. No symptoms or risks identified at this time. Initial Sepsis Screen: Does the patient meet any 2 criteria? No. Patient's initial sepsis screen is negative. Does the patient have a suspected source of infection? No. Patient's initial sepsis screen is negative. Risk Assessment: Do you want to hurt yourself or someone else? Patient reports no desire to harm self or others. Onset of symptoms was March 31, 2021. 02:19 Method Of Arrival: Ambulatory sj1 02:19 Acuity: OSMIN 3 sj1 Triage Assessment: 02:22 General: Appears in no apparent distress. Behavior is calm, cooperative, appropriate sj1 for age. Pain: Complains of pain in RUQ/RLQ. EENT: No deficits noted. Neuro: No deficits noted. Cardiovascular: No deficits noted. Respiratory: No deficits noted. GI: Reports lower abdominal pain, upper abdominal pain, nausea, vomiting. : No deficits noted. Derm: No deficits noted. Musculoskeletal: No deficits noted. 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 - Social history:: Smoking status: Patient denies any tobacco usage or history of. Patient/guardian denies using alcohol, street drugs. - Family history:: not pertinent. - Hospitalizations: : No recent hospitalization is reported. Screenin:27 Abuse screen: Denies threats or abuse. Denies injuries from another. Nutritional sj1 screening: No deficits noted. Tuberculosis screening: No symptoms or risk factors identified. Fall Risk None identified. Assessment: 02:25 General: Appears in no apparent distress. uncomfortable, obese, well groomed, well dc2 developed, Behavior is calm, cooperative. Pain: Complains of pain in Right upper quadrant. Neuro: No deficits noted. Respiratory: No deficits noted. Breath sounds are clear bilaterally. GI: Abdomen is round non-distended, obese, Bowel sounds present X 4 quads. Abdomen is tender to palpation in right upper quadrant Reports upper abdominal pain, cramping, nausea, Pain is 10 out of 10 on a pain scale. vomiting, since 9 pm on night. 02:25 : No signs and/or symptoms were reported regarding the genitourinary system. dc2 Musculoskeletal: No deficits noted. 03:30 Reassessment: Pt states pain is almost gone. Has called brother to pickling operator . Pt is dc2 aaox4 with steady gait noted. Vital Signs: 02:19 BP 134 / 89 Sitting; Pulse 71; Resp 18 S; Temp 97.9(O); Pulse Ox 96% on R/A; Weight [facility] 111.13 kg (R); Height 5 ft. 5 in. (165.10 cm); Pain 8/10; 02:45 BP 112 / 60; Pulse 71; Resp 18; Pulse Ox 98% ; Pain 10/10; dc2 03:00 BP 114 / 79; Pulse 69; Resp 17; Pulse Ox 99% ; Pain 4/10; dc2 02:19 Body Mass Index 40.77 (111.13 kg, 165.10 cm) [facility] ED Course: 01:50 Patient arrived in ED. wm 02:14 US Abdomen Limited In Process Unspecified. EDMS 02:17 Madan Waller MD is Attending Physician. rn 02:21 Francisco, Meenu, RN is Primary Nurse. dc2 02:21 ED physician to see patient. dc2 02:22 Triage completed. sj1 02:22 Arm band placed on Patient placed in an exam room. sj1 02:24 Inserted saline lock: 20 gauge in right antecubital area, using aseptic technique. dc2 Blood collected. 02:27 Patient has correct armband on for positive identification. Bed in low position. Call sj1 light in reach. Side rails up X 1. 02:27 Basic Metabolic Panel Sent. dc2 02:28 CBC with Diff Sent. dc2 02:28 Hepatic Function Sent. dc2 02:28 Lipase Sent. dc2 03:07 ED physician to see patient. dc2 03:09 No provider procedures requiring assistance completed. dc2 03:11 Kevin Graham MD is Referral Physician. rn 03:30 IV discontinued, intact, bleeding controlled, No redness/swelling at site. Pressure dc2 dressing applied. Administered Medications: 02:33 Drug: Zofran (Ondansetron) 4 mg Route: IVP; Infused Over: 1 mins; Site: right dc2 antecubital; 03:08 Follow up: Response: Nausea is decreased dc2 03:26 Follow up: Response: Nausea is decreased dc2 02:35 Drug: morphine 4 mg Route: IVP; Infused Over: 3 mins; Site: right antecubital; dc2 03:08 Follow up: Response: Nausea is decreased dc2 03:08 Drug: morphine 4 mg Route: IVP; Infused Over: 2 mins; Site: right antecubital; dc2 03:28 Follow up: Response: Pain is decreased dc2 Outcome: 03:12 Discharge ordered by . rn 03:29 Discharged to home ambulatory. dc2 03:29 Condition: stable 03:29 Discharge instructions given to patient, Instructed on discharge instructions, follow up and referral plans. Demonstrated understanding of instructions, follow-up care, Prescriptions given X 03:32 Patient left the ED. dc2 Signatures: Dispatcher [employer] EDMS Madan Waller MD MD rn Marsh, Wendy Meenu Singh RN RN dc2 Maria Luisa Cotter RN RN sj1
--- NOTE | 2021-04-01 03:13 | EDPHYS ---
Physician Documentation [facility] Name: Luanne Carlin Age: 35 yrs Sex: Female : 1985 Arrival Date: 04/01/2021 Time: 01:50 Bed 24 Private MD: ED Physician Madan Waller HPI: 04/01 02:31 This 35 yrs old Female presents to ER via Ambulatory with complaints of rn Gallstone flare up, she thinks. 02:31 The patient presents with abdominal pain in the right upper quadrant. Onset: The rn symptoms/episode began/occurred last night. The symptoms radiate to right back. Associated signs and symptoms: Pertinent positives: nausea, Pertinent negatives: blood in stools, fever. The symptoms are described as achy, sharp. Modifying factors: The symptoms are alleviated by nothing, the symptoms are aggravated by food, touching the area. Severity of pain: At its worst the pain was moderate in the emergency department the pain has improved. The patient has experienced similar episodes in the past. The patient has not recently seen a physician. Patient reports has gallstones, had been doing okay but then pain returned after eating dinner last night. States had a salad. Denies any vomiting but reports nausea. Identical pain in right upper quadrant that radiates to the right back. No injury or trauma. No blood in stool. No fever.. 02:31 States has not been able to follow-up with a general surgeon due to lack of insurance. 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 - Social history:: Smoking status: Patient denies any tobacco usage or history of. Patient/guardian denies using alcohol, street drugs. - Family history:: not pertinent. - Hospitalizations: : No recent hospitalization is reported. ROS: 02:31 Constitutional: Negative for fever, chills, and weight loss, Eyes: Negative for injury, rn pain, redness, and discharge, Neck: Negative for injury, pain, and swelling, Cardiovascular: Negative for chest pain, palpitations, and edema, Respiratory: Negative for shortness of breath, cough, wheezing, and pleuritic chest pain, Abdomen/GI: Positive for abdominal pain and nausea Back: Negative for injury and pain, : Negative for injury, bleeding, discharge, and swelling, MS/Extremity: Negative for injury and deformity, Skin: Negative for injury, rash, and discoloration, Neuro: Negative for headache, weakness, numbness, tingling, and seizure. Exam: 02:31 Constitutional: This is a well developed, well nourished patient who is awake, alert, rn and in no acute distress. Head/Face: Normocephalic, atraumatic. Cardiovascular: Regular rate and rhythm. No pulse deficits. Respiratory: No increased work of breathing, no retractions or nasal flaring. Abdomen/GI: Soft, mild right upper quadrant tenderness without Amanda sign, no peritoneal signs Skin: Warm, dry MS/ Extremity: Pulses equal, no cyanosis. Neuro: Awake and alert, GCS 15 Vital Signs: 02:19 BP 134 / 89 Sitting; Pulse 71; Resp 18 S; Temp 97.9(O); Pulse Ox 96% on R/A; Weight sj1 111.13 kg (R); Height 5 ft. 5 in. (165.10 cm); Pain 8/10; 02:45 BP 112 / 60; Pulse 71; Resp 18; Pulse Ox 98% ; Pain 10/10; dc2 03:00 BP 114 / 79; Pulse 69; Resp 17; Pulse Ox 99% ; Pain 4/10; dc2 02:19 Body Mass Index 40.77 (111.13 kg, 165.10 cm) [facility] MDM: 02:17 Patient medically screened. rn 03:09 Differential diagnosis: cholecystitis, Cholelithiasis, gastritis, gastroesophageal rn reflux disease, non-specific abd pain, pancreatitis, Peptic Ulcer Disease. Data reviewed: vital signs, nurses notes, lab test result(s), radiologic studies, ultrasound, and as a result, I will discharge patient. Counseling: I had a detailed discussion with the patient and/or guardian regarding: the historical points, exam findings, and any diagnostic results supporting the discharge/admit diagnosis, lab results, radiology results, the need for outpatient follow up, to return to the emergency department if symptoms worsen or persist or if there are any questions or concerns that arise at home. Response to treatment: the patient's symptoms have markedly improved after treatment, and as a result, I will discharge patient. Special discussion: Based on the patient's Hx, exam, and Dx evaluation, there is no indication for emergent surgery or inpatient Tx. It is understood by the patient/guardian that if the Sx's persist or worsen they need to return immediately for re-evaluation. I discussed with the patient/guardian in detail that at this point there is no indication for admission to the hospital. It is understood, however, that if the symptoms persist or worsen the patient needs to return immediately for re-evaluation. Based on the history and exam findings, there is no indication for further emergent testing or inpatient evaluation. I discussed with the patient/guardian the need to see the general surgeon for further evaluation of the symptoms. ED course: Patient states improved. No sign of infection in bladder on ultrasound. Still just cholelithiasis, uncomplicated. Will DC home with instructions to follow-up with general surgery.. 04/01 02:22 Order name: Basic Metabolic Panel; Complete Time: 03:04 04/01 02:22 Order name: CBC with Diff; Complete Time: 03:04 04/01 01:55 Order name: US Abdomen Limited 04/01 02:22 Order name: Hepatic Function; Complete Time: 03:04 04/01 02:22 Order name: Lipase; Complete Time: 03:04 04/01 02:22 Order name: IV Saline Lock; Complete Time: 02:27 04/01 02:22 Order name: Labs collected and sent; Complete Time: 02:27 rn Administered Medications: 02:33 Drug: Zofran (Ondansetron) 4 mg Route: IVP; Infused Over: 1 mins; Site: right dc2 antecubital; 03:08 Follow up: Response: Nausea is decreased dc2 03:26 Follow up: Response: Nausea is decreased dc2 02:35 Drug: morphine 4 mg Route: IVP; Infused Over: 3 mins; Site: right antecubital; dc2 03:08 Follow up: Response: Nausea is decreased dc2 03:08 Drug: morphine 4 mg Route: IVP; Infused Over: 2 mins; Site: right antecubital; dc2 03:28 Follow up: Response: Pain is decreased dc2 Disposition Summary: 04/01/21 03:12 Discharge Ordered Location: Home rn Problem: new rn Symptoms: have improved rn Condition: Stable rn Diagnosis - Other cholelithiasis without obstruction rn Followup: rn - With: Kevin Graham MD - When: As needed - Reason: Recheck today's complaints, Re-evaluation by your physician Discharge Instructions: - Discharge Summary Sheet rn - Cholelithiasis rn Forms: - Medication Reconciliation Form rn - Thank You Letter rn - Antibiotic [employer] - Prescription Opioid Use rn Signatures: Dispatcher [employer] Madan Hardy MD MD rn Meenu Singh RN RN dc2 Maria Luisa Cotter RN RN sj1
[2021-04-01 04:02] VITALS: TEMP 97.9
[2021-04-01 04:08] VITALS: BP 114/79; O2SAT 99
--- NOTE | 2021-04-01 08:30 | RAD REPORT ---
EXAM DESCRIPTION: US - Abdomen Exam Limited - 04/01/2021 2:14 am CLINICAL HISTORY: Abdominal pain. COMPARISON: February 2021 FINDINGS: The gallbladder wall is not thickened. Multiple gallstones The biliary tree is normal caliber. IMPRESSION: Cholelithiasis
== END 2021-04-01 03:32 | disposition home or self-care (01) ==
LOC: ER 01:47
DX: K80.80 Other cholelithiasis without obstruction (principal); I10 Essential (primary) hypertension; F41.9 Anxiety disorder, unspecified
CPT/HCPCS: 36415; 76705; 80048; 80076; 83690; 85025; 96374; 96375; 99284; J2405

== ENCOUNTER 2021-09-12 08:14 | Emergency (ER) | payer SELFPAY ==
--- OUTSIDE RECORDS SUMMARY | 2021-09-12 08:17 | XMS REPORT | Continuity of Care Document ---
:1985 Author Organization [facility] t Address [address] [place] [address] Care Team Providers Name Role Phone FREDDIE [...] Department ID 2021-01-12 2021-01-12 Outpatient SANDRA BURLESON [id number] Sandra 11:30:00 11:30:00 ALCON sen 2021-01-12 2021-01-12 Outpatient SANDRA BURLESON [id number] 08:30:00 08:30:00 ALCON sen Results This patient has no known results.
[2021-09-12 09:11] LABS: Urine Blood Negative (Negative); Urine Glucose Negative (Negative); Urine Protein Negative (Negative); Urine Specific Gravity 1.025 (1.005-1.030); Urine pH 6.5 (5.0-7.0)
[2021-09-12 09:22] LABS: Absolute Lymphocytes (CBC) 2.3 K/uL (0.7-4.9); Hematocrit 39.2 % (36.0-45.0); Lymphocytes % 32.8 % (15.3-44.8); MPV 7.6 fL (7.6-11.3); RBC Red Blood Cell Count 4.47 M/uL (3.86-4.86)
[2021-09-12] MEDS ORDERED: KETOROLAC 30 MG/ML INJ ONE (09:23)
[2021-09-12] MEDS ORDERED: NA CHLORIDE 0.9% 1,000 ML ONE (09:23)
[2021-09-12] MEDS ORDERED: CLINDAMYCIN 900MG/D5W 900 MG/50 ML IVPB IV ONE (09:23)
[2021-09-12 09:39] LABS: Urine Specific Gravity/Preg 1.025 (1.005-1.030)
[2021-09-12 09:54] LABS: Albumin 3.4 g/dL (3.4-5.0); Bilirubin Total 0.3 mg/dL (0.2-1.0); Potassium 3.8 mmol/L (3.5-5.1)
--- NOTE | 2021-09-12 10:35 | RAD REPORT ---
EXAM DESCRIPTION: CT - FC CLINICAL HISTORY: FACIAL PAIN COMPARISON: No comparisons TECHNIQUE: Axial 2 mm thick images of the face were obtained with sagittal and coronal reconstructio n images. All CT scans are performed using dose optimization technique as appropriate and may include automated exposure control or mA/KV adjustment according to patient size. FINDINGS: No acute facial bone fracture is seen.The mandible is intact. The globes and orbital contents are grossly unremarkable.Trace left maxillary sinus thickening. Procedural changes from left maxillary premolar extraction. No abscess identified. Bony dehiscence an d noted at the roof of the socket. There is a small amount of hypoattenuating material, possibly some fluid adjacent to this. No discrete abscess identified. IMPRESSION: Surgical changes from recent left maxillary premolar extraction. Dehiscence of the socke t with adjacent nonspecific thickening could reflect inflammation. No well-defined abscess identified .
--- NOTE | 2021-09-12 10:37 | ER ---
Nurse's Notes [facility] Name: Luanne Carlin Age: 36 yrs Sex: Female : 1985 Arrival Date: 09/12/2021 Time: 08:15 Bed 19 Private MD: Diagnosis: Dental procedure status-sp extraction Presentation: 09/12 08:28 Chief complaint: Patient states: Left upper tooth extraction on , reports jl7 increased swelling and pain to left cheek and eye. Coronavirus screen: At this time, the client does not indicate any symptoms associated with coronavirus-19. Ebola Screen: No symptoms or risks identified at this time. Initial Sepsis Screen: Does the patient meet any 2 criteria? No. Patient's initial sepsis screen is negative. Does the patient have a suspected source of infection? Yes: Skin breakdown/wound. Risk Assessment: Do you want to hurt yourself or someone else? Patient reports no desire to harm self or others. Onset of symptoms is unknown. 08:28 Method Of Arrival: Ambulatory jl7 08:28 Acuity: OSMIN 3 jl7 Triage Assessment: 08:30 General: Appears in no apparent distress. uncomfortable, Behavior is calm, cooperative, jl7 appropriate for age. Pain: Complains of pain in left cheek and left eye Pain currently is 7 out of 10 on a pain scale. Neuro: Level of Consciousness is awake, alert, obeys commands, Oriented to person, place, time, situation. Cardiovascular: Patient's skin is warm and dry. Respiratory: Airway is patent Respiratory effort is even, unlabored, Respiratory pattern is regular, symmetrical. Derm: Skin is pink, warm \T\ dry. Historical: - Allergies: 08:30 No Known Allergies; jl7 - Home Meds: 08:30 Cipro Oral [Active]; Lexapro 20 mg Oral tab 1 tab once daily [Active]; metoprolol jl7 tartrate 50 mg Oral tab 1 tab 2 times per day [Active]; - PMHx: 08:30 Anxiety; gallstone; Hypertensive disorder; jl7 - PSHx: 08:30 section; Tonsillectomy; Cholecystectomy; jl7 - Immunization history:: Client reports receiving the 2nd dose of the Covid vaccine. - Social history:: Smoking status: Reported history of juuling and/or vaping. - Family history:: not pertinent. Screenin:45 Abuse screen: Denies threats or abuse. Denies injuries from another. Nutritional ww screening: No deficits noted. Tuberculosis screening: No symptoms or risk factors identified. Fall Risk None identified. Assessment: 08:45 General: Appears uncomfortable, Behavior is calm, cooperative. Pain: Complains of pain ww in nose, left cheek, left eye and left jaw. Neuro: Level of Consciousness is awake, alert, obeys commands, Oriented to person, place, time, situation, Speech is normal. Cardiovascular: Capillary refill Patient's skin is warm and dry. Chest pain. Respiratory: Airway is patent Respiratory effort is even, unlabored, Respiratory pattern is regular, symmetrical. GI: No signs and/or symptoms were reported involving the gastrointestinal system. : No signs and/or symptoms were reported regarding the genitourinary system. EENT: Oral mucosa is moist. Absence of teeth noted - upper left first molar (#14) Reports nasal congestion pain. Derm: No signs and/or symptoms reported regarding the dermatologic system. Skin is intact, is healthy with good turgor, Skin is pink, warm \T\ dry. 09:34 Reassessment: Patient appears in no apparent distress at this time. No changes from ww previously documented assessment. Patient and/or family updated on plan of care and expected duration. Pain level reassessed. Patient is alert, oriented x 3, equal unlabored respirations, skin warm/dry/pink. requested to take her home dose of Ibuprofen, Dr. Colón notified and ordered Toradol Patient states symptoms have not improved. 10:31 Reassessment: Patient appears in no apparent distress at this time. No changes from ww previously documented assessment. Patient and/or family updated on plan of care and expected duration. Pain level reassessed. Patient is alert, oriented x 3, equal unlabored respirations, skin warm/dry/pink. Vital Signs: 08:28 BP 139 / 90; Pulse 85; Resp 17; Temp 98.6; Pulse Ox 98% on R/A; Weight 111.13 kg; jl7 Height 5 ft. 5 in. (165.10 cm); Pain 7/10; 10:46 BP 93 / 74; Pulse 71; Resp 18; Pulse Ox 98% on R/A; ww 08:28 Body Mass Index 40.77 (111.13 kg, 165.10 cm) jl7 ED Course: 08:15 Patient arrived in ED. as 08:21 Nathaly Herrera, RN is Primary Nurse. ww 08:21 Roddy Colón MD is Attending Physician. [facility] 08:30 Triage completed. jl7 08:30 Arm band placed on right wrist. jl7 08:45 Patient has correct armband on for positive identification. Bed in low position. Call ww light in reach. Side rails up X 1. Pulse ox on. NIBP on. 08:45 Inserted saline lock: 20 gauge in right antecubital area, using aseptic technique. ww Blood collected. 09:19 CT Maxillofacial W/cont Sent. aa5 10:16 CT Maxillofacial W/cont In Process Unspecified. EDMS 10:37 Seth Stack DDS is Referral Physician. noemy 11:14 No provider procedures requiring assistance completed. IV discontinued, intact, ww bleeding controlled, No redness/swelling at site. Pressure dressing applied. Administered Medications: 09:25 Drug: NS 0.9% 1000 ml Route: IV; Rate: 1 bolus; Site: right antecubital; ww 09:26 Drug: Clindamycin 900 mg Route: IVPB; Infused Over: 30 mins; Site: right antecubital; ww 09:26 Drug: Ketorolac 30 mg Route: IVP; Site: right antecubital; ww Outcome: 10:37 Discharge ordered by . noemy 11:14 Discharged to home ambulatory. ww 11:14 Condition: stable 11:14 Discharge instructions given to patient, Instructed on discharge instructions, follow up and referral plans. medication usage, safety practices, Demonstrated understanding of instructions, follow-up care, medications, Prescriptions given X 3. 11:14 Patient left the ED. ww Signatures: Dispatcher [employer] EDTN Roddy Colón MD MD cha Martinez, Amelia as Norma Ruiz RN RN aa5 Sheila Stokes RN RN jl7 Nathaly Herrera RN RN ww Corrections: (The following items were deleted from the chart) 08:31 08:30 Social history: Smoking status: Patient denies any tobacco usage or history of. 7 7
--- NOTE | 2021-09-12 10:37 | EDPHYS ---
Physician Documentation [facility] Name: Luanne Calrin Age: 36 yrs Sex: Female : 1985 Arrival Date: 09/12/2021 Time: 08:15 Bed 19 Private MD: Roddy Carroll HPI: 09/12 09:18 This 36 yrs old Female presents to ER via Ambulatory with complaints of Facial noemy Swelling, Blurred Vision. Historical: - Allergies: 08:30 No Known Allergies; jl7 - Home Meds: 08:30 Cipro Oral [Active]; Lexapro 20 mg Oral tab 1 tab once daily [Active]; metoprolol jl7 tartrate 50 mg Oral tab 1 tab 2 times per day [Active]; - PMHx: 08:30 Anxiety; gallstone; Hypertensive disorder; jl7 - PSHx: 08:30 section; Tonsillectomy; Cholecystectomy; jl7 - Immunization history:: Client reports receiving the 2nd dose of the Covid vaccine. - Social history:: Smoking status: Reported history of juuling and/or vaping. - Family history:: not pertinent. ROS: 09:18 Constitutional: Negative for fever, chills, and weight loss, Eyes: Negative for injury, noemy pain, redness, and discharge, Neck: Negative for injury, pain, and swelling, Cardiovascular: Negative for chest pain, palpitations, and edema, Respiratory: Negative for shortness of breath, cough, wheezing, and pleuritic chest pain, Abdomen/GI: Negative for abdominal pain, nausea, vomiting, diarrhea, and constipation, Back: Negative for injury and pain, : Negative for injury, bleeding, discharge, and swelling, MS/Extremity: Negative for injury and deformity, Skin: Negative for injury, rash, and discoloration, Neuro: Negative for headache, weakness, numbness, tingling, and seizure, Psych: Negative for depression, anxiety, suicide ideation, homicidal ideation, and hallucinations, Allergy/Immunology: Negative for hives, rash, and allergies, Endocrine: Negative for neck swelling, polydipsia, polyuria, polyphagia, and marked weight changes, Hematologic/Lymphatic: Negative for swollen nodes, abnormal bleeding, and unusual bruising. 09:18 ENT: Positive for Gum pain nasal discharge, rhinorrhea, sinus congestion, sinus pain. Exam: 09:18 Constitutional: This is a well developed, well nourished patient who is awake, alert, noemy and in no acute distress. Eyes: Pupils equal round and reactive to light, extra-ocular motions intact. Lids and lashes normal. Conjunctiva and sclera are non-icteric and not injected. Cornea within normal limits. Periorbital areas with no swelling, redness, or edema. Neck: Trachea midline, no thyromegaly or masses palpated, and no cervical lymphadenopathy. Supple, full range of motion without nuchal rigidity, or vertebral point tenderness. No Meningismus. Chest/axilla: Normal chest wall appearance and motion. Nontender with no deformity. No lesions are appreciated. Cardiovascular: Regular rate and rhythm with a normal S1 and S2. No gallops, murmurs, or rubs. Normal PMI, no JVD. No pulse deficits. Respiratory: Lungs have equal breath sounds bilaterally, clear to auscultation and percussion. No rales, rhonchi or wheezes noted. No increased work of breathing, no retractions or nasal flaring. Abdomen/GI: Soft, non-tender, with normal bowel sounds. No distension or tympany. No guarding or rebound. No evidence of tenderness throughout. Back: No spinal tenderness. No costovertebral tenderness. Full range of motion. Skin: Warm, dry with normal turgor. Normal color with no rashes, no lesions, and no evidence of cellulitis. MS/ Extremity: Pulses equal, no cyanosis. Neurovascular intact. Full, normal range of motion. Neuro: Awake and alert, GCS 15, oriented to person, place, time, and situation. Cranial nerves II-XII grossly intact. Motor strength 5/5 in all extremities. Sensory grossly intact. Cerebellar exam normal. Normal gait. Psych: Awake, alert, with orientation to person, place and time. Behavior, mood, and affect are within normal limits. 09:18 Head/face: Noted is swelling, tenderness, that is mild, of the left cheek. Vital Signs: 08:28 BP 139 / 90; Pulse 85; Resp 17; Temp 98.6; Pulse Ox 98% on R/A; Weight 111.13 kg; jl7 Height 5 ft. 5 in. (165.10 cm); Pain 7/10; 10:46 BP 93 / 74; Pulse 71; Resp 18; Pulse Ox 98% on R/A; ww 08:28 Body Mass Index 40.77 (111.13 kg, 165.10 cm) jl7 MDM: 08:21 Patient medically screened. [facility] 09/12 08:59 Order name: CBC with Diff; Complete Time: 10:36 noemy 09/12 08:59 Order name: Comprehensive Metabolic Panel; Complete Time: 10:36 noemy 09/12 08:59 Order name: CT Maxillofacial W/cont; Complete Time: 10:36 noemy 09/12 09:11 Order name: Urine Dipstick-Ancillary; Complete Time: 10:36 EDMS 09/12 09:11 Order name: Urine --Ancillary (enter results); Complete Time: 10:36 bd 09/12 08:59 Order name: Urine Dipstick-Ancillary (obtain specimen); Complete Time: 09:18 noemy 09/12 08:59 Order name: Urine Test (obtain specimen); Complete Time: 09:18 [facility] Administered Medications: 09:25 Drug: NS 0.9% 1000 ml Route: IV; Rate: 1 bolus; Site: right antecubital; ww 09:26 Drug: Clindamycin 900 mg Route: IVPB; Infused Over: 30 mins; Site: right antecubital; ww 09:26 Drug: Ketorolac 30 mg Route: IVP; Site: right antecubital; ww Disposition Summary: 09/12/21 10:37 Discharge Ordered Location: Home noemy Problem: new noemy Symptoms: have improved noemy Condition: Stable noemy Diagnosis - Dental procedure status - sp extraction noemy Followup: noemy - With: Private Physician - When: 2 - 3 days - Reason: Recheck today's complaints, Continuance of care, Re-evaluation by your physician Followup: noemy - With: - When: 2 - 3 days - Reason: Recheck today's complaints, Re-evaluation by your physician Discharge Instructions: - Discharge Summary Sheet noemy - Dental Abscess noemy - Dental Extraction noemy - Dental Extraction, Care After, [id number] noemy - Dental Extraction, Care After noemy - Dental Abscess, [id number] noemy - Dental Extraction, [id number] noemy Forms: - Medication Reconciliation Form noemy - Thank You Letter noemy - Antibiotic Education noemy - Prescription Opioid Use noemy - Work release form Prescriptions: - Marika-D 12 Hour 60-120 mg Oral Tablet Sustained Release 12 hr - take 1 tablet by ORAL route every 12 hours As needed; 30 tablet; Refills: 0, [facility] Product Selection Permitted - Clindamycin HCl 300 mg Oral Capsule - take 1 capsule by ORAL route every 6 hours for 10 days; 40 capsule; Refills: 0, [facility] Product Selection Permitted - Tylenol-Codeine #3 300 mg-30 mg Oral - take 2 tablet by ORAL route every 6 hours; 20 tablet; Refills: 0, Product noemy Selection Permitted Signatures: Dispatcher [employer] EDRoddy Dominguez MD MD cha Leal, Jahala, RN RN Nathaly Badillo RN RN ww Corrections: (The following items were deleted from the chart) 08:31 08:30 Social history: Smoking status: Patient denies any tobacco usage or history of. ce jl7
[2021-09-12 11:21] VITALS: TEMP 98.6; O2SAT 98
[2021-09-12 11:22] VITALS: BP 93/74
== END 2021-09-12 11:14 | disposition home or self-care (01) ==
LOC: ER 08:14
DX: R22.9 Localized swelling, mass and lump, unspecified (principal); Z98.818 Other dental procedure status; I10 Essential (primary) hypertension; F41.9 Anxiety disorder, unspecified
CPT/HCPCS: 36415; 70487; 80053; 81003; 81025; 85025; 96374; 96375; 99284; J7030; Q9967

== ENCOUNTER 2023-03-07 13:47 | Emergency (ER) | payer OTHER, SELFPAY ==
--- OUTSIDE RECORDS SUMMARY | 2023-03-07 13:50 | XMS REPORT | Continuity of Care Document ---
:1985 Author Organization [facility] t Address [address] [facility] [address] [place] [address] Care Team Providers Name Role Phone ELIZABETH DEJESUS Attending Clinician Unavailable MD WAYLON Attending Clinician Unavailable LAB90 Attending Clinician Unavailable YOVANY BARRETT Attending Clinician Unavailable SHENG ZUÑIGA Attending Clinician Unavailable AMANDA LINN Attending Clinician Unavailable Elizabeth Monroe Attending Clinician ALCON BURLESON Attending Clinician Unavailable Payers Payer Name Policy Type Policy Number Effective Date Expiration Date Kacie harvey [employer]ET[employer] 2 [id number] 2021 00:00:00 Problems Condition Condition Condition Status Onset Resolution Last Treating Co mments Source Name Details Category Date Date Treatment Clinician Date Breast Breast Disease Active Alida mass in mass in 7-28 Carmelo female - female - 00:00: - Not Not 00 Externa Controlled Controlled l Allergies, Adverse Reactions, Alerts This patient has no known allergies or adverse reactions. Social History Social Habit Start Date Stop Date Quantity Comments Source History of Cigarette Smoker Alida Hester eybold - tobacco use External Sex Ass[birth year] At [birth year] F Alida Matthews ybold - 00:00:00 00:00:00 External Smoking Status Start Date Stop Date Source Ex-smoker 2020-11-01 00:00:00 2020-11-01 00:00:00 Alida S eybold - External Medications Ordered Filled Start Stop Current Ordering Indication Dosage Frequency Signature Comments Components Source Medication Medication Date Date Medication? Clinician (SIG) Name Name Levonorgest Yes [id number] 1{tbl} Take 1 Alida -Eth Estrad 2-27 tablet by Sey bold 00:00: mouth - (Seasonique 00 daily Externa ) 0.15-0.03 l &0.01 MG oral Tablet Nitrofurant Yes [id number] 100mg Take 1 Alida oin Monohyd 2-27 capsule Seybo ld Macro 00:00: (100 mg - (Macrobid) 00 total) by Exte rna 100 MG oral mouth 2 l Capsule times daily Metoprolol Yes [id number] TAKE 1 K elsey Tartrate 2-24 TABLET Seybold (LOPRESSOR) 00:00: (50MG - 50 MG oral 00 TOTAL) BY Exte rna Tablet MOUTH l DAILY Cyanocobala 2022- No [id number] 1000ug Inject Alida min (VIT 2-24 -19 1,000 mcg Seybo ld B12) 1000 00:00: 04:59 as - MCG/ML 00 :00 directed Externa injection once a l Solution week for 4 doses Escitalopra Yes [id number] 20mg Take 1 Alida m Oxalate 2-13 tablet (20 Seyb old 20 MG oral 00:00: mg total) - Tablet 00 by mouth Externa daily l Trazodone Yes [id number] 75mg Take 1.5 Alida HCl 50 MG 2-06 tablets Seybold oral Tablet 00:00: (75 mg - 00 total) by Externa mouth l nightly Tirzepatide Yes [id number] 7.5mg Inject 0.5 Alida (Mounjaro) 2-06 mL (7.5 mg Sey bold 7.5 00:00: total) - MG/0.5ML 00 into the Externa subcutaneou skin once l s Solution a week Pen-injecto r Phentermine Yes [id number] 37.5mg Take 1 Alida HCl 37.5 MG 1-18 tablet Seybol d oral Tablet 00:00: (37.5 mg - 00 total) by Externa mouth l every morning (before breakfast) Ondansetron Yes [id number] 4mg Q.[id number] Take 1 Alida (Zofran -18 [id number] tablet (4 S eybold ODT) 4 MG 00:00: 3D mg total) - oral TABLET 00 by mouth Exte rna DISPERSIBLE every 8 l hours as needed for nausea Bupropion Yes [id number] 150mg Take 1 K elsey HCL XL 150 18 tablet Seybold MG OR TB24 00:00: (150 mg - 00 total) by Externa mouth l daily Tirzepatide 2021-06 Yes [id number] 7.5mg Inject 0.5 Alida (Mounjaro) -28 mL (7.5 mg Sey bold 7.5 00:00: total) - MG/0.5ML 00 into the Externa subcutaneou skin once l s Solution a week Pen-injecto r Escitalopra 2021-06 Yes [id number] 20mg Take 1 Alida m Oxalate -28 tablet (20 Seyb old (Lexapro) 00:00: mg total) - 20 MG oral 00 by mouth Exter na Tablet daily l Clindamycin 2021-06 Yes [id number] Apply to Alida Phosphate 07-15 area 4 Seybold (Clindagel) 00:00: times - 1 % apply 00 daily for Exter na externally 10 days l Gel Doxycycline 2021-06 Yes [id number] 100mg Take 1 Alida Hyclate 100 07-15 tablet Seybol d MG oral 00:00: (100 mg - Tablet 00 total) by Externa mouth 2 l times daily Hydroquinon 2021-06 Yes [id number] Apply 1 Alida e 4 % apply 07-15 applicatio Se ybold externally 00:00: n - Cream 00 topically Externa 2 times l daily Hydroquinon 2021-06 Yes [id number] Apply 1 Alida e 4 % apply 07-15 applicatio Se ybold externally 00:00: n - Cream 00 topically Externa 2 times l daily Clindamycin 2021-06- No [id number] Apply to Alida Phosphate -28 - area 4 Seybold (Clindagel) 00:00: 00:00 times - 1 % apply 00 :00 daily for Exter na externally 10 days l Gel Doxycycline 2021-06- No [id number] 100mg Take 1 Alida Hyclate 100 07-15 tablet Seybo ld MG oral 00:00: 00:00 (100 mg - Tablet 00 :00 total) by Externa mouth 2 l times daily Etonogestre 2021-06 Yes 1 ring Marcia ey l-Ethinyl -15 Seybold Estradiol 00:00: - 0.12-0.015 00 Externa MG/24HR l vaginal RING Bupropion 2021-06 Yes [id number] 150mg Take 1 K elsey HCL XL 150 -07 tablet Seybold MG OR TB24 00:00: (150 mg - 00 total) by Externa mouth l daily Metoprolol 2021-06 Yes [id number] TAKE 1 K elsey Tartrate 50 -07 TABLET Seybol d MG oral 00:00: (50MG - Tablet 00 TOTAL) BY Externa MOUTH l DAILY Trazodone 2021-06 Yes [id number] 75mg Take 1.5 Alida HCl 50 MG -07 tablets Seybold oral Tablet 00:00: (75 mg - 00 total) by Externa mouth l nightly Phentermine 2021-06 Yes [id number] 37.5mg Take 1 Alida HCl 37.5 MG -07 tablet Seybol d oral Tablet 00:00: (37.5 mg - 00 total) by Externa mouth l every morning (before breakfast) Escitalopra 2021-06- No [id number] 10mg Take 1 Alida m Oxalate 06-24 tablet (10 Sey bold 10 MG oral 00:00: 00:00 mg total) - Tablet 00 :00 by mouth Externa daily l Tirzepatide 2021-06 Yes [id number] 5mg Inject 0.5 Alida (Mounjaro) 1- mL (5 mg Seybo ld 5 MG/0.5ML 00:00: total) - subcutaneou 00 into the Exte rna s Solution skin once l Pen-injecto a week r Phentermine 2021-06 Yes [id number] 37.5mg Take 1 Alida HCl 37.5 MG 1-01 tablet Seybol d oral Tablet 00:00: (37.5 mg - 00 total) by Externa mouth l every morning (before breakfast) Ondansetron 2021-06 Yes [id number] 4mg Q.[id number] Take 1 Alida (Zofran 0-24 [id number] tablet (4 S eybold ODT) 4 MG 00:00: 3D mg total) - oral TABLET 00 by mouth Exte rna DISPERSIBLE every 8 l hours as needed for nausea Ondansetron 2021-06 Yes [id number] 4mg Q.[id number] Take 1 Alida (Zofran 0-24 [id number] tablet (4 S eybold ODT) 4 MG 00:00: 3D mg total) - oral TABLET 00 by mouth Exte rna DISPERSIBLE every 8 l hours as needed for nausea Bupropion 2021-06 Yes [id number] 150mg Take 1 K elsey HCL XL 150 0-10 tablet Seybold MG OR TB24 00:00: (150 mg - 00 total) by Externa mouth l daily Escitalopra 2021-06 Yes [id number] 10mg Take 1 Alida m Oxalate 0-10 tablet (10 Seyb old 10 MG oral 00:00: mg total) - Tablet 00 by mouth Externa daily l Metoprolol 2021-06 Yes [id number] TAKE 1 K elsey Tartrate 50 0-10 TABLET Seybol d MG oral 00:00: (50MG - Tablet 00 TOTAL) BY Externa MOUTH l DAILY Trazodone 2021-06 Yes [id number] 75mg Take 1.5 Alida HCl 50 MG 0-10 tablets Seybold oral Tablet 00:00: (75 mg - 00 total) by Externa mouth l nightly Phentermine 2021-06- No [id number] 37.5mg Take 1 Alida HCl 37.5 MG 0-10 11-01 tablet Seybo ld oral Tablet 00:00: 00:00 (37.5 mg - 00 :00 total) by Externa mouth l every morning (before breakfast) Tirzepatide Yes [id number] 2.5mg Inject 0.5 Alida 2.5 9-28 mL (2.5 mg Seybold MG/0.5ML 00:00: total) - subcutaneou 00 into the Exte rna s Solution skin once l Pen-injecto a week r Trazodone Yes [id number] 75mg Take 1.5 Alida HCl 50 MG 9-28 tablets Seybold oral Tablet 00:00: (75 mg - 00 total) by Externa mouth l nightly Phentermine Yes [id number] 37.5mg Take 1 Alida HCl 37.5 MG 9-28 tablet Seybol d oral Tablet 00:00: (37.5 mg - 00 total) by Externa mouth l every morning (before breakfast) Escitalopra Yes [id number] 10mg Take 1 Alida m Oxalate 9-28 tablet (10 Seyb old 10 MG oral 00:00: mg total) - Tablet 00 by mouth Externa daily l Bupropion Yes [id number] 150mg Take 1 K elsey HCL XL 150 - tablet Seybold MG OR TB24 00:00: (150 mg - 00 total) by Externa mouth l daily Tirzepatide 2021- No [id number] 2.5mg Inject 0.5 Alida 2.5 9-28 11-01 mL (2.5 mg Seybold MG/0.5ML 00:00: 00:00 total) - subcutaneou 00 :00 into the Exte rna s Solution skin once l Pen-injecto a week r Phentermine 2021- No [id number] 37.5mg Take 1 Alida HCl 37.5 MG 8-30 - tablet Seybo ld oral Tablet 00:00: 00:00 (37.5 mg - 00 :00 total) by Externa mouth l every morning (before breakfast) Nitrofurant 2021- No [id number] 100mg Take 1 Alida oin Monohyd -17 - capsule Seyb old Macro 00:00: 00:00 (100 mg - (Macrobid) 00 :00 total) by Exte rna 100 MG oral mouth 2 l Capsule times daily Doxepin HCl 0 2021- No [id number] 1{tbl} Take 1 Alida 3 MG oral -15 03-15 tablet by Seyb old Tablet 00:00: 00:00 mouth - 00 :00 nightly Externa l Bupropion 2021- No [id number] 150mg TAKE 1 Alida HCL XL 150 803-15 TABLET Seybol d MG OR TB24 00:00: 00:00 (150 MG - 00 :00 TOTAL) BY Externa MOUTH l DAILY Escitalopra 2021- No [id number] 10mg TAKE 1 Alida m Oxalate 8- TABLET (10 Sey bold 10 MG oral 00:00: 00:00 MG TOTAL) - Tablet 00 :00 BY MOUTH Externa DAILY l Metoprolol Yes [id number] TAKE 1 K elsey Tartrate 50 7-14 TABLET Seybol d MG oral 00:00: (50MG - Tablet 00 TOTAL) BY Externa MOUTH l DAILY Phenazopyri 2021- No [id number] 200mg Q.[id number] Take 1 Alida dine HCl 11-02 [id number] tablet Se ybold 200 MG oral 00:00: 00:00 3D (200 mg - Tablet 00 :00 total) by Externa mouth 3 l times daily as needed for pain Vital Signs Vital Name Observation Time Observation Value Comments Source Systolic blood 2022-08-14 20:49:00 104 mm[Hg] Alida Matthewsybold - pressure External Diastolic blood 2022-08-14 20:49:00 66 mm[Hg] Basil ricci Seybold - pressure External Heart rate 2022-08-14 20:49:00 87 /min Alida suarez - External Body temperature 2022-08-14 20:49:00 36.67 Imani Marcia ey Seybold - External Respiratory rate 2022-08-14 20:49:00 14 /min Marcia malloy Seybold - External Body height 2022-08-14 20:49:00 165.1 cm Alida suarez - External Body weight 2022-08-14 20:49:00 80.74 kg Alida suarez - External BMI 2022-08-14 20:49:00 29.62 kg/m2 Alida moralesld - External Systolic blood 2022-05-15 21:40:00 122 mm[Hg] Alida Rhodes - pressure External Diastolic blood 2022-05-15 21:40:00 74 mm[Hg] Frankse y Seybold - pressure External Heart rate 2022-05-15 21:40:00 89 /min Alida S eybold - External Body temperature 2022-05-15 21:40:00 36.78 Imani Marcia ey Seybold - External Respiratory rate 2022-05-15 21:40:00 14 /min Marcia ey Seybold - External Body height 2022-05-15 21:40:00 165.1 cm Alida S eybold - External Body weight 2022-05-15 21:40:00 92.08 kg Alida S eybold - External BMI 2022-05-15 21:40:00 33.78 kg/m2 Alida S eybold - External Oxygen saturation in 2022-05-15 21:40:00 99 /min Alida Seybold - Arterial blood by External Pulse oximetry Systolic blood 2022-04-18 21:07:00 126 mm[Hg] Alida Seybold - pressure External Diastolic blood 2022-04-18 21:07:00 72 mm[Hg] Frankse y Seybold - pressure External Heart rate 2022-04-18 21:07:00 93 /min Alida S eybold - External Body temperature 2022-04-18 21:07:00 36.11 Imani Marcia ey Seybold - External Respiratory rate 2022-04-18 21:07:00 14 /min Marcia ey Seybold - External Body height 2022-04-18 21:07:00 165.1 cm Alida S eybold - External Body weight 2022-04-18 21:07:00 100.245 kg Alida S eybold - External BMI 2022-04-18 21:07:00 36.78 kg/m2 Alida S eybold - External Oxygen saturation in 2022-04-18 21:07:00 99 /min Alida Seybold - Arterial blood by External Pulse oximetry Systolic blood 2022-03-15 13:30:00 100 mm[Hg] Alida Seybold - pressure External Diastolic blood 2022-03-15 13:30:00 56 mm[Hg] Frankse y Seybold - pressure External Heart rate 2022-03-15 13:30:00 90 /min Alida suarez - External Body temperature 2022-03-15 13:30:00 36.67 Imani Marcia Rhodes - External Respiratory rate 2022-03-15 13:30:00 14 /min Marcia Rhodes - External Body height 2022-03-15 13:30:00 165.1 cm Alida suarez - External Body weight 2022-03-15 13:30:00 104.781 kg Alida suarez - External BMI 2022-03-15 13:30:00 38.44 kg/m2 Alida suarez - External Procedures This patient has no known procedures. Encounters Start End Encounter Admission Attending Care Care Encounter Source Date/Time Date/Time Type Type Clinicians Facility Department ID 2023-02-22 2023-02-22 Outpatient ALIDA DEJESUS [id number] Alida 00:00:00 00:00:00 ELIZABETH Lopezol francy 2023-01-23 2023-01-23 Outpatient ALIDA DEJESUS [id number] Alida 00:00:00 00:00:00 ELIZABETH Matthewsybol francy 2023-01-01 2023-01-01 Outpatient BRITNIONHector FLORES [id number] Alida 00:00:00 00:00:00 MD Stephon GALLEGO 2022-12-27 2022-12-27 Outpatient ALIDA DEJESUS [id number] Alida 00:00:00 00:00:00 ELIZABETH Matthewsybol francy 2022-12-27 2022-12-27 Outpatient ALIDA DEJESUS [id number] Alida 00:00:00 00:00:00 ELIZABETH Seybol d 2022-12-25 2022-12-25 Outpatient ALIDA DEJESUS [id number] Alida 00:00:00 00:00:00 ELIZABETH Matthewsybol d 2022-11-24 2022-11-24 Outpatient ALIDA DEJESUS [id number] Alida 00:00:00 00:00:00 ELIZABETH Matthewsybol francy 2022-11-23 2022-11-23 Outpatient ALIDA DEJESUS [id number] Alida 00:00:00 00:00:00 ELIZABETH Seybol d 2022-10-18 2022-10-18 Outpatient HUNDL, ALIDA FLORES [id number] Alida 00:00:00 00:00:00 ELIZABETH Seybol d 2022-10-02 2022-10-02 Outpatient HUNDL, ALIDA FLORES [id number] Alida 00:00:00 00:00:00 ELIZABETH Seybol d 2022-09-07 2022-09-07 Outpatient HUNDL, ALIDA FLORES [id number] Alida 00:00:00 00:00:00 ELIZABETH Seybol d 2022-09-03 2022-09-03 Outpatient HUNDL, ALIDA FLORES [id number] Alida 00:00:00 00:00:00 ELIZABETH Seybol d 2022-08-31 2022-08-31 Outpatient HUNDL, ALIDA FLORES [id number] Alida 00:00:00 00:00:00 ELIZABETH Seybol d 2022-08-30 2022-08-30 Outpatient HUNDL, ALIDA FLORES [id number] Alida 00:00:00 00:00:00 ELIZABETH Seybol d 2022-08-28 2022-08-28 Outpatient HUNDL, ALIDA FLORES [id number] Alida 11:00:00 11:00:00 ELIZABETH Seybol d 2022-08-22 2022-08-22 Outpatient HUNDL, ALIDA FLORES [id number] Alida 00:00:00 00:00:00 ELIZABETH Seybol d 2022-08-17 2022-08-17 Outpatient HUNDL, ALIDA FLORES [id number] Alida 00:00:00 00:00:00 ELIZABETH Seybol d 2022-08-14 2022-08-14 Outpatient LAB90 ALIDA FLORES [id number] Alida 15:45:00 15:45:00 Seybol d 2022-08-14 2022-08-14 Outpatient HUNDL, ALIDA FLORES [id number] Alida 15:00:00 15:00:00 ELIZABETH Seybol d 2022-08-14 2022-08-14 Outpatient HUNDL, ALIDA FLORES [id number] Alida 15:00:00 15:00:00 ELIZABETH Seybol d 2022-08-10 2022-08-10 Outpatient HUNDL, ALIDA FLORES [id number] Alida 00:00:00 00:00:00 ELIZABETH Seybol d 2022-07-31 2022-07-31 Outpatient HUNDL, ALIDA FLORES [id number] Alida 00:00:00 00:00:00 ELIZABETH Seybol d 2022-07-24 2022-07-24 Outpatient HUNDL, ALIDA FLORES [id number] Alida 00:00:00 00:00:00 ELIZABETH Seybol d 2022-07-06 2022-07-06 Outpatient HUNDL, ALIDA FLORES [id number] Alida 00:00:00 00:00:00 ELIZABETH Seybol d 2022-07-06 2022-07-06 Outpatient HUNDL, ALIDA FLORES [id number] Alida 00:00:00 00:00:00 ELIZABETH Seybol d 2022-07-04 2022-07-04 Outpatient HUNDL, ALIDA FLORES [id number] Alida 00:00:00 00:00:00 ELIZABETH Seybol d 2022-07-04 2022-07-04 Outpatient HUNDL, ALIDA FLORES [id number] Alida 00:00:00 00:00:00 ELIZABETH Seybol d 2022-07-03 2022-07-03 Outpatient HUNDL, ALIDA FLORES [id number] Alida 00:00:00 00:00:00 ELIZABETH Seybol d 2022-06-27 2022-06-27 Outpatient HUNDL, ALIDA FLORES [id number] Alida 00:00:00 00:00:00 ELIZABETH Seybol d 2022-06-05 2022-06-05 Outpatient HUNDL, ALIDA FLORES [id number] Alida 00:00:00 00:00:00 ELIZABETH Seybol d 2022-05-17 2022-05-17 Outpatient HUNDL, ALIDA FLORES [id number] Alida 00:00:00 00:00:00 ELIZABETH Seybol d 2022-05-17 2022-05-17 Outpatient HUNDL, ALIDA FLORES [id number] Alida 00:00:00 00:00:00 ELIZABETH Seybol d 2022-05-15 2022-05-15 Outpatient HUNDL ALIDA FLORES [id number] Alida 15:30:00 15:30:00 ELIZABETH Seybol d 2022-05-14 2022-05-14 Outpatient HUNDL ALIDA FLORES [id number] Alida 00:00:00 00:00:00 ELIZABETH Seybol d 2022-05-12 2022-05-12 Outpatient HUNDL ALIDA FLORES [id number] Alida 16:30:00 16:30:00 ELIZABETH Seybol d 2022-05-04 2022-05-04 Outpatient GARALIDA WHITEHEAD [id number] Alida 15:30:00 15:30:00 YOVANY Seybol d 2022-05-02 2022-05-02 Outpatient ANJELICA ALIDA FLORES [id number] Alida 00:00:00 00:00:00 ELIZABETH Seybol d 2022-05-02 2022-05-02 Outpatient JEANMARIEL ALIDA FLORES [id number] Alida 00:00:00 00:00:00 ELIZABETH Seybol d 2022-05-01 2022-05-01 Outpatient ANJELICA ALIDA FLORES [id number] Alida 00:00:00 00:00:00 ELIZABETH Seybol d 2022-04-20 2022-04-20 Outpatient NNEA ALIDA FLORES [id number] Alida 15:30:00 15:30:00 YOVANY Seybol d 2022-04-19 2022-04-19 Outpatient ANJELICA ALIDA FLORES [id number] Alida 00:00:00 00:00:00 ELIZABETH Seybol d 2022-04-18 2022-04-18 Outpatient ANJELICA ALIDA FLORES [id number] Alida 16:00:00 16:00:00 ELIZABETH Seybol d 2022-04-13 2022-04-13 Outpatient ALIDA BARRETT [id number] Alida 11:30:00 11:30:00 YOVANY Seybol d 2022-04-12 2022-04-12 Outpatient JEANMARIELALIDA [id number] Alida 08:30:00 08:30:00 ELIZABETH Seybol d 2022-04-10 2022-04-10 Outpatient JEANMARIEL, ALIDA FLORES [id number] Alida 00:00:00 00:00:00 ELIZABETH Seybol d 2022-04-07 2022-04-07 Outpatient AKOGLU, ALIDA FLORES [id number] Alida 09:00:00 09:00:00 AYSENUR Seybol d 2022-03-30 2022-03-30 Outpatient HO, ALIDA FLORES [id number] Alida 15:45:00 15:45:00 AMANDA Seyb old 2022-03-27 2022-03-27 Outpatient HOALIDA [id number] Alida 09:30:00 09:30:00 AMANDA Seyb old 2022-03-16 2022-03-16 Outpatient HUNDL, ALIDA FLORES [id number] Alida 00:00:00 00:00:00 ELIZABETH Seybol d 2022-03-15 2022-03-15 Outpatient HUNDL, ALIDA FLORES [id number] Alida 08:30:00 08:30:00 ELIZABETH Seybol d 2022-03-15 2022-03-15 Outpatient HUNDL, ALIDA FLORES [id number] Alida 00:00:00 00:00:00 ELIZABETH Seybol d 2022-02-24 2022-02-24 Outpatient HUNDL, ALIDA FLORES [id number] Alida 15:30:00 15:30:00 ELIZABETH Seybol d 2022-02-01 2022-02-01 Outpatient HUNDL, ALIDA FLORES [id number] Alida 00:00:00 00:00:00 ELIZABETH Seybol d 2022-01-30 2022-01-30 Outpatient LAB90 ALIDA FLORES [id number] Alida 17:15:00 17:15:00 Seybol d 2022-01-30 2022-01-30 Office Kike Dejesus [id number] Alida 16:30:00 17:00:00 Visit Elizabeth Ma [id number] Se ybold [id number] 2022-01-30 2022-01-30 Outpatient ALIDA DEJESUS [id number] Alida 08:00:00 08:00:00 ELIZABETH Seybol d 2022-01-10 2022-01-10 Outpatient ANJELICA ALIDA FLORES [id number] Alida 14:00:00 14:00:00 ELIZABETH Seybol d 2022-01-10 2022-01-10 Outpatient ANJELICA ALIDA FLORES [id number] Alida 00:00:00 00:00:00 ELIZABETH Seybol d 2022-01-02 2022-01-02 Outpatient ALIDA DEJESUS [id number] Ailda 00:00:00 00:00:00 ELIZABETH Seybol d 2021-12-29 2021-12-29 Office Kike Dejesus [id number] Alida 13:00:00 13:30:00 Visit Elizabeth Ma [id number] [facility] [id number] 2021-10-31 2021-10-31 Outpatient ALIDA BURLESON [id number] Alida 00:00:00 00:00:00 ALCON Seybol d 2021-01-12 2021-01-12 Outpatient ALIDA BURLESON [id number] Alida 11:30:00 11:30:00 ALCON Seybol d 2021-01-12 2021-01-12 Outpatient ALIDA BURLESON [id number] Alida 08:30:00 08:30:00 ALCON Seybol d Results This patient has no known results.
[2023-03-07 14:24] LABS: Specific Gravity 1.019 (1.005-1.030)
[2023-03-07 14:27] LABS: Specific Gravity 1.019 (1.005-1.030); Urine Bacteria <20 /HPF (<20); Urine Bilirubin NEGATIVE (Negative); Urine Blood Negative (Negative); Urine Clarity Clear (Clear); Urine Color Light-Yellow (Yellow); Urine Glucose NEGATIVE (Negative); Urine Mucus Slight /HPF (None Seen); Urine Protein NEGATIVE (Negative); Urine RBC <5 /HPF (None Seen); Urine Urobilinogen Normal (Normal); Urine pH 5.5 (5.0-7.0)
--- NOTE | 2023-03-07 15:24 | RAD REPORT ---
EXAM DESCRIPTION: US - Transvaginal Study Probe - 03/07/2023 2:53 pm CLINICAL HISTORY: Abd pain;Vaginal bleeding COMPARISON: Maxillofacial W/Cont dated 09/12/2021 TECHNIQUE: Sonographic grayscale and color flow images of the pelvis were obtained through transva ginal approach. FINDINGS: The uterus is retroverted and slightly bulky, could contain ill-defined fibroids. The uter us measures 6.7 cm in length. The endometrial stripe measures 6 mm, normal. Small punctate echogenicities within the endometrial st ripe relate to blood products in the setting of active bleeding. Please correlate with menstrual phas e. The right ovary measures 1.7 x 1.7 x 1.4 cm. The left ovary was not visualized due to over shadowing bowel. No ovarian or parovarian suspicious lesions or adnexal masses. Normal Doppler blood flow was demonstrated to the right ovary. No significant pelvic ascites. IMPRESSION: Retroverted uterus, possibly containing ill-defined fibroids. No suspicious focal endome trial lesions. Normal appearance of the right ovary. Left ovary was not visualized.
--- NOTE | 2023-03-07 15:32 | EDPHYS ---
Physician Documentation [facility] Name: Luanne Carlin Age: 37 yrs Sex: Female : 1985 Arrival Date: 03/07/2023 Time: 13:47 Bed 10 Private MD: ED Physician Adrienne Nicholson HPI: 03/07 18:03 This 37 yrs old Female presents to ER via Ambulatory with complaints of Vaginal sb4 Bleeding, Vaginal Pain. 18:03 The patient presents with vaginal bleeding that is spotting. Onset: The sb4 symptoms/episode began/occurred 1 month(s) ago. Modifying factors: The symptoms are alleviated by nothing, the symptoms are aggravated by nothing. Associated signs and symptoms: Pertinent positives: cramping, Pertinent negatives: dysuria, fever, hematuria, vaginal discharge. The patient's method of control includes BCP. The patient has not experienced similar symptoms in the past. patient states she has had spotting on and off for a month now associated with lower abdominal cramping. she had her IUD removed in May and was changed to OCPs. she also reports having a tummy tuck done in august and is concerned this is a complication. 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 - Social history:: Smoking status: Reported history of juuling and/or vaping. Patient denies any tobacco usage or history of. ROS: 18:03 Positive for vaginal bleeding, menstrual abnormality, sb4 18:03 Constitutional: Negative for fever, chills, and weight loss, 18:03 Abdomen/GI: Positive for abdominal cramps, 18:03 All other systems are negative, Exam: 18:03 Constitutional: This is a well developed, well nourished patient who is awake, alert, sb4 and in no acute distress. Head/Face: Normocephalic, atraumatic. Eyes: Extra-ocular motions intact. Periorbital areas with no swelling, redness, or edema. ENT: Mucous membranes moist. Skin: Warm, dry with normal turgor. Normal color with no rashes, no lesions, and no evidence of cellulitis. MS/ Extremity: Pulses equal, no cyanosis. Neurovascular intact. Full, normal range of motion. Neuro: Awake and alert, GCS 15, oriented to person, place, time, and situation. Motor strength 5/5 in all extremities. Sensory grossly intact. Vital Signs: 13:59 BP 125 / 88; Pulse 81; Resp 16; Temp 98.8; Pulse Ox 100% ; Weight 62.6 kg; Height 5 ft. ll1 5 in. ; Pain 8/10; 15:49 BP 121 / 81; Pulse 81; Resp 16; ll1 13:59 Body Mass Index 22.96 (62.60 kg, 165.1 cm) ll1 13:59 Pain Scale: Adult ll1 MDM: 14:08 Patient medically screened. sb4 18:03 Differential diagnosis: dysmenorrhea, ectopic , endometriosis, sb4 menometrorrhagia, menorrhea, molar preganancy, Neoplasm ovarian cyst, postcoital bleeding, ruptured ectopic , uterine fibroids, urinary tract infection. Data reviewed: vital signs, nurses notes, lab test result(s), radiologic studies, and as a result, I will discharge patient. Care significantly affected by the following chronic conditions: Hypertension. Counseling: I had a detailed discussion with the patient and/or guardian regarding the historical points, exam findings, and any diagnostic results supporting the discharge/admit diagnosis, lab results, radiology results, the need for outpatient follow up, an OB/Gyne specialist, to return to the emergency department if symptoms worsen or persist or if there are any questions or concerns that arise at home. 03/07 14:08 Order name: UAM; Complete Time: 14:29 sb4 03/07 14:08 Order name: Test, Urine; Complete Time: 14:25 sb4 03/07 14:08 Order name: Transvaginal Study (probe); Complete Time: 15:25 sb4 Administered Medications: 15:40 Drug: Hydrocodone-Acetaminophen PO (7.5 mg-325 mg) 1 tabs PO once Route: PO; ll1 15:47 Follow up: Response: No adverse reaction; RASS: Alert and Calm (0) ll1 15:40 Drug: Ondansetron Oral Disintegrating Tablet Oral Disintegrating Tablet 4 mg PO once ll1 Route: PO; 15:48 Follow up: Response: No adverse reaction ll1 Disposition Summary: 03/07/23 15:32 Discharge Ordered Notes: Location: Home sb4 Problem: an ongoing problem sb4 Symptoms: are unchanged sb4 Condition: Stable sb4 Diagnosis - Other specified abnormal uterine and vaginal bleeding sb4 - uterine fibroids sb4 Followup: sb4 - With: Private Physician - When: 2 - 3 days - Reason: Recheck today's complaints, Re-evaluation by your physician Discharge Instructions: - Discharge Summary Sheet sb4 - Uterine Fibroids, [id number] sb4 Forms: - Work release form em1 - Medication Reconciliation Form sb4 - Thank You Letter sb4 - Antibiotic Education sb4 - Prescription Opioid Use sb4 - Patient Portal Instructions sb4 - Leadership Thank You Letter sb4 Signatures: Dispatcher [employer] Polo Yousif RN RN ll1 Alyssa Diallo PA-C PA-C sb4 Corrections: (The following items were deleted from the chart) 13:59 13:58 PSHx: "tummy tuck" (Tonsillectomy); ll1 ll1
--- NOTE | 2023-03-07 15:32 | ER ---
Nurse[facility] Name: Luanne Carlin Age: 37 yrs Sex: Female : 1985 Arrival Date: 03/07/2023 Time: 13:47 Bed 10 Private MD: Diagnosis: Other specified abnormal uterine and vaginal bleeding;uterine fibroids Presentation: 03/07 13:59 Chief complaint: Patient states: Spotting off/on for 1 month. Has CONTRERAS, cramping, ll1 bloating, but no actual period. Spotting again this weekend and today. Coronavirus screen: Vaccine status: Patient reports being unvaccinated. Client denies travel out of the [place] in the last 14 days. At this time, the client does not indicate any symptoms associated with coronavirus-19. Ebola Screen: Patient denies travel to an Ebola-affected area in the 21 days before illness onset. Initial Sepsis Screen: Does the patient meet any 2 criteria? No. Patient's initial sepsis screen is negative. Does the patient have a suspected source of infection? No. Patient's initial sepsis screen is negative. Risk Assessment: Do you want to hurt yourself or someone else? Patient reports no desire to harm self or others. Onset of symptoms was February 04, 2023. 13:59 Method Of Arrival: Ambulatory ll1 13:59 Acuity: OSMIN 3 ll1 Triage Assessment: 14:01 General: Appears in no apparent distress. Behavior is calm, cooperative, appropriate ll1 for age. Pain: Complains of pain in abdomen Quality of pain is described as aching, crampy. : Reports cramping, discharge, vaginal bleeding that is spotty. 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 - Social history:: Smoking status: Reported history of juuling and/or vaping. Patient denies any tobacco usage or history of. Screenin:48 [facility] ED Fall Risk Assessment (Adult) Score/Fall Risk Level 0 - 2 = Low Risk ll1 Oriented to surroundings, Maintained a safe environment, Educated pt \\T\\ family on fall prevention, incl call for assistance when getting out of bed, Hourly rounding (assess needs \\T\\ fall precautionary measures) done. Abuse screen: Denies threats or abuse. Nutritional screening: No deficits noted. Tuberculosis screening: No symptoms or risk factors identified. Assessment: 15:48 Reassessment: No changes from previously documented assessment. Patient and/or family ll1 updated on plan of care and expected duration. Pain level reassessed. Patient is alert, oriented x 3, equal unlabored respirations, skin warm/dry/pink. 15:48 : Urine is clear. ll1 Vital Signs: 13:59 BP 125 / 88; Pulse 81; Resp 16; Temp 98.8; Pulse Ox 100% ; Weight 62.6 kg; Height 5 ft. ll1 5 in. ; Pain 8/10; 15:49 BP 121 / 81; Pulse 81; Resp 16; ll1 13:59 Body Mass Index 22.96 (62.60 kg, 165.1 cm) ll1 13:59 Pain Scale: Adult ll1 ED Course: 13:50 Patient arrived in ED. im 14:00 Triage completed. ll1 14:00 Arm band placed on. ll1 14:02 Alyssa Diallo PA-C is PHCP. sb4 14:02 Adrienne Nicholson is Attending Physician. sb4 14:12 UAM Sent. ll1 14:12 Test, Urine Sent. ll1 14:55 Transvaginal Study (probe) In Process Unspecified. EDMS 15:27 Patient placed in an exam room, on a stretcher. ll1 15:48 Patient has correct armband on for positive identification. Provided Education on: n/a. ll1 15:48 No provider procedures requiring assistance completed. Patient did not have IV access ll1 during this emergency room visit. Administered Medications: 15:40 Drug: Hydrocodone-Acetaminophen PO (7.5 mg-325 mg) 1 tabs PO once Route: PO; ll1 15:47 Follow up: Response: No adverse reaction; RASS: Alert and Calm (0) ll1 15:40 Drug: Ondansetron Oral Disintegrating Tablet Oral Disintegrating Tablet 4 mg PO once ll1 Route: PO; 15:48 Follow up: Response: No adverse reaction ll1 Medication: 15:49 VIS not applicable for this client. ll1 Outcome: 15:32 Discharge ordered by . sb4 15:48 Discharged to home ambulatory, 1 15:48 Condition: stable 15:48 Discharge instructions given to patient, Instructed on discharge instructions, follow up and referral plans. Demonstrated understanding of instructions, follow-up care, 15:49 Patient left the ED. 1 Signatures: Dispatcher [employer] Polo Yousif RN RN ll1 Alyssa Diallo, PA-C PA-C sb4 Lyubov Fischer Corrections: (The following items were deleted from the chart) 13:59 13:58 PSHx: "tummy usha" (Tonsillectomy); 1 1
[2023-03-07] MEDS ORDERED: HYDROCODONE/APAP 7.5/325 MG TAB ONE ×2 (15:48→15:57)
[2023-03-07] MEDS ORDERED: ONDANSETRON 4 MG (ODT) TAB ONE (15:48)
[2023-03-07 16:24] VITALS: TEMP 98.8; O2SAT 100
[2023-03-07 16:25] VITALS: BP 121/81
== END 2023-03-07 15:49 | disposition home or self-care (01) ==
LOC: ER 13:47
DX: D25.9 Leiomyoma of uterus, unspecified (principal)
CPT/HCPCS: 81001; 81025; 76830; Q0162

== ENCOUNTER 2023-12-20 23:19 | Emergency (ER) | payer OTHER ==
--- OUTSIDE RECORDS SUMMARY | 2023-12-20 23:24 | XMS REPORT | Continuity of Care Document ---
Author Name Unknown Address [address] [facility] [address] [place] [address] [facility] [address] 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 Name Role Phone ELIZABETH DEJESUS Attending Clinician Unavailable YOSSI SHANKAR Attending Clinician UnavailNANDINI Lopez Attending Clinician Unava ilable LAB90 Attending Clinician Unavailable [email or web address]_S Attending Clinician Unavaila SAM Simeon Attending Clinician Unavailable PROVIDER, VIDEOVISITNOW Attending Clinician Unav ailbakari CONNORS MD Attending Clinician Unavailab YOVANY Son Attending Clinician Unavailab SHENG Haq Attending Clinician Unavailable AMANDA LINN Attending Clinician Unavailable Elizabeth Monroe Attending Clinician [email or web address] Admitting Clinician Naldo kirk Payers Payer Name Policy Type Policy Number Effective Date Expirati on Date Source AETNA 2 [id number] 2021 00:00:00 AET[employer] - CHOICE (POS II) [id number] 2021 00:00:00 Problems Condition Name Condition Details Condition Category Status Onset Date Resolution Date Last Treatment Date Treating Clinician Comments Source Anxiety disorder Anxiety disorder Disease Active 03-09 00:00: 00 Alida Zaratea deepali Primary hypertensi on Primary hypertensi on Disease Active 03-09 00:00: 00 Alida Rhodes - Externa l Vitamin B12 deficiency Vitamin B12 deficiency Disease Active 03-09 00:00: 00 Alida Rhodes - Elliota l Insomnia Insomnia Disease Active 03-09 00:00: 00 Alida Rhodes - Externa l Breast mass in female - Not Controlled Breast mass in female - Not Controlled Disease Active 7 00:00: 00 Alida Rhodes - Externa l Social History Social Habit Start Date Stop Date Quantity Comments Source Sexual orientation 2021-12-28 09:10:48 Heterosexual (finding) Alida Rhodes - External History of tobacco use Current smoker Alida sen - External Alcoholic beverage intake 2023-10-09 00:00:00 2023-10-09 00:00:00 Current drinker of alcohol (finding) Alida Rhodes - External Alcohol intake 2023-08-23 00:00:00 2023-08-23 00:00:00 Current drinker of alcohol (finding) Alida Rhodes - External Tobacco use and exposure 2023-03-09 00:00:00 2023-03-09 00:00:00 Smokeless tobacco non-user Alida Rhodes - External History of Social function 2023-03-09 00:00:00 2023-03-09 00:00:00 Alida Rhodes - External Education - What is the highest level of school you have completed or the highest degree you have received? 2023-03-09 00:00:00 2023-03-09 00:00:00 Bachelor's degree (e.g., BA, AB, BS) Alida Rhodes - External Alcohol Comment 2023-03-09 00:00:00 2023-03-09 00:00:00 rarely Alida Rhodes - External Sex assigned at 1985 00:00:00 1985 00:00:00 F Alida Rhodes - External Smoking Status Start Date Stop Date Source Ex-smoker 2023-03-09 00:00:00 2023-03-09 00:00:00 Errol Luo External Medications Ordered Medication Name Filled Medication Name Start Date Stop Date Current Medication? Ordering Clinician Indication Dosage Frequency Signature (SIG) Comments Components Source Amoxicillin -Pot Clavulanate 875-125 MG oral Tablet 11-04 00:00: 00 Yes [id number] 1{tbl} Take 1 tablet by mouth 2 times daily. Alida palumbo Propranolol HCl 20 MG oral Tablet 10-17 00:00: 00 Yes [id number] 20mg TAKE 1 TABLET BY MOUTH THREE TIMES DAILY Alida palumbo Ergocalcife rol (Vitamin D2) 50 MCG (1999 UT) oral Tablet 10-08 14:28: 54 Yes Take by mouth. Alida palumbo Levonorgest rel (MIRENA, 52 MG, IU) 10-08 14:27: 14 10-08 00:00 :00 No Alida palumbo Tirzepatide -Weight Management (Zepbound) 2.5 MG/0.5ML subcutaneou s Solution Auto-inject or 10-08 00:00: 00 Yes [id number] 2.5mg Inject 0.5 mL (2.5 mg total) into the skin once a week. Alida palumbo Eszopiclone 1 MG oral Tablet 10-08 00:00: 00 Yes [id number] 1mg Take 1 tablet (1 mg total) by mouth nightly. Alida palumbo Clonazepam 0.25 MG oral TABLET DISPERSIBLE 10-08 00:00: 00 Yes [id number] .25mg Q.5D Take 1 tablet (0.25 mg total) by mouth 2 times daily as needed. Alida palumbo Propranolol HCl 20 MG oral Tablet 09-18 00:00: 00 Yes [id number] 20mg Take 1 tablet (20 mg total) by mouth 3 times daily. Alida palumbo Montelukast (SINGULAIR) 10 MG oral Tablet tablet 08-23 00:00: 00 10-08 00:00 :00 No [id number] 10mg TAKE 1 TABLET BY MOUTH NIGHTLY Alida palumbo Triamcinolo ne Acetonide (KENALOG) 40 mg/mL 08-22 17:15: 00 08-22 17:12 :00 No [id number] 40mg Alida palumbo Triamcinolo ne Acetonide (KENALOG) 40 mg/mL 08-22 17:15: 00 08-22 17:12 :00 No [id number] 1mL 40 mg (1 mL), intramuscu lar, ONCE, On Genevieve 08/23/23 at 1115, For 1 dose Alida palumbo Diclofenac Sodium 75 MG oral Tablet Delayed Response 08-22 10:38: 25 08-22 00:00 :00 No Alida palumbo Propranolol HCl 20 MG oral Tablet 08-22 00:00: 00 Yes [id number] 20mg Take 1 tablet (20 mg total) by mouth 3 times daily. Alida palumbo Trazodone HCl 100 MG oral Tablet 08-22 00:00: 00 Yes [id number] 100mg QD Take 1 tablet (100 mg total) by mouth nightly as needed for sleep. Alida palumbo Metoprolol Tartrate (LOPRESSOR) 50 MG oral Tablet 08-22 00:00: 00 Yes [id number] TAKE 1 TABLET (50MG TOTAL) BY MOUTH DAILY. Alida palumbo Cyanocobala min (VIT B12) 1000 MCG/ML injection Solution 08-22 00:00: 00 Yes [id number] 1000ug Inject 1,000 mcg as directed once a week. Alida palumbo Escitalopra m Oxalate 20 MG oral Tablet 08-22 00:00: 00 Yes [id number] 20mg Take 1 tablet (20 mg total) by mouth daily. Alida palumbo Semaglutide -Weight Management (Wegovy) 1.7 MG/0.75ML subcutaneou s Solution Auto-inject or 2024-0 3-07 00:00: 00 10-08 00:00 :00 No [id number] 1.7mg Inject 1.7 mg into the skin once a week. Alida palumbo Clonazepam 0.25 MG oral TABLET DISPERSIBLE 3-07 00:00: 00 10-08 00:00 :00 No [id number] .25mg Q.5D Take 1 tablet (0.25 mg total) by mouth 2 times daily as needed. Alida palumbo Levonorgest -Eth Estrad -Day (Seasonique ) 0.15-0.03 &0.01 MG oral Tablet 07-30 00:00: 00 10-08 00:00 :00 No [id number] 1{tbl} Take 1 tablet by mouth daily. Alida palumbo Semaglutide -Weight Management (Wegovy) 0.5 MG/0.5ML subcutaneou s Solution Auto-inject or 07-23 00:00: 00 08-22 00:00 :00 No [id number] .5mg Inject 0.5 mg into the skin once a week. Alida palumbo Escitalopra m Oxalate 20 MG oral Tablet - 00:00: 00 08-21 00:00 :00 No [id number] 20mg TAKE 1 TABLET BY MOUTH DAILY Alida palumbo Propranolol HCl 10 MG oral Tablet 1- 00:00: 00 08-22 00:00 :00 No [id number] 10mg Q.[id number] 3D TAKE 1 TABLET BY MOUTH THREE TIMES DAILY NEEDED Alida palumbo Trazodone HCl 150 MG oral Tablet 2022-06 08:42: 15 05-29 00:00 :00 No 1 tablet at bedtime; Once a day; 30 day(s) Alida palumbo Tirzepatide (Mounjaro) 5 MG/0.5ML subcutaneou s Solution Pen-injecto r 2022-06 08:26: 51 05-29 00:00 :00 No See Admin Instructio ns. Alida palumbo Gabapentin 300 MG oral Capsule 2022-06 08:26: 51 05-29 00:00 :00 No as needed. Frankse ricci Carmelo palumbo levoFLOXaci n 750 MG oral Tablet 2022-06 08:26: 51 05-29 00:00 :00 No Take 1 tablet every day by oral route for 14 days. Alida palumbo Metronidazo le 500 MG oral Tablet 2022-06 08:26: 51 05-29 00:00 :00 No Take 1 tablet twice a day by oral route for 14 days. Alida palumbo Diclofenac Sodium 75 MG oral Tablet Delayed Response 2022-06 08:11: 14 Yes Alida palumbo Doxepin HCl 3 MG oral Tablet 2022-06 00:00: 00 Yes [id number] 2{tbl} Take 2 tablets by mouth at bedtime. Alida palumbo Semaglutide -Weight Management (Wegovy) 0.25 MG/0.5ML subcutaneou s Solution Auto-inject or 2022-06 00:00: 00 Yes [id number] .25mg Inject 0.25 mg into the skin once a week. Alida palumbo methylPREDN ISolone 4 MG oral Tablet Therapy Pack 2022-06 00:00: 00 Yes [id number] 1{taina} Take 1 taina by mouth See Admin Instructio ns Use as directed. Alida palumob Cyanocobala min (VIT B12) 1000 MCG/ML injection Solution 2022-06 00:00: 00 Yes [id number] 1000ug Inject 1,000 mcg as directed once a week. Alida palumbo Propranolol HCl 10 MG oral Tablet 2022-06 00:00: 00 Yes [id number] 10mg Q.[id number] 3D TAKE 1 TABLET BY MOUTH THREE TIMES DAILY NEEDED Alida palumbo Tirzepatide (Mounjaro) 5 MG/0.5ML subcutaneou s Solution Pen-injecto r 2022-06 15:10: 04 Yes See Admin Instructio ns. Alida palumbo Trazodone HCl 150 MG oral Tablet 2022-06 15:10: 04 Yes 1 tablet at bedtime; Once a day; 30 day(s) Alida palumbo Diclofenac Sodium 75 MG oral Tablet Delayed Response 2022-06 15:10: 04 Yes Alida palumbo Gabapentin 300 MG oral Capsule 2022-06 15:10: 04 Yes as needed. Alida palumbo levoFLOXaci n 750 MG oral Tablet 2022-06 15:10: 04 Yes Take 1 tablet every day by oral route for 14 days. Alida palumbo Metronidazo le 500 MG oral Tablet 2022-06 15:10: 04 Yes Take 1 tablet twice a day by oral route for 14 days. Alida palumbo Pseudoeph-B romphen-DM 30-2-10 MG/5ML oral Syrup 2022-06 00:00: 00 Yes [id number] 10mL Q.25D Take 10 mL by mouth 4 times daily as needed. Alida palumbo methylPREDN ISolone 4 MG oral Tablet Therapy Pack 2022-06 00:00: 00 Yes [id number] 1{taina} Take 1 taina by mouth See Admin Instructio ns Use as directed. Alida palumbo Montelukast (Singulair) 10 MG oral Tablet tablet 2022-06 00:00: 00 Yes [id number] 10mg Take 1 tablet (10 mg total) by mouth nightly. Alida palumbo Amoxicillin -Pot Clavulanate 875-125 MG oral Tablet 2022-06 00:00: 00 08-22 00:00 :00 No [id number] 1{tbl} Take 1 tablet by mouth 2 times daily. Alida palumbo Doxepin HCl 3 MG oral Tablet 2022-06 00:00: 00 Yes [id number] 1{tbl} Take 1 tablet by mouth at bedtime. Alida palumbo Propranolol HCl 10 MG oral Tablet 2022-06 00:00: 00 Yes [id number] 10mg Q.[id number] 3D Take 1 tablet (10 mg total) by mouth 3 times daily as needed. Alida palumbo Levonorgest -Eth Estrad 91-Day (Seasonique ) 0.15-0.03 &0.01 MG oral Tablet 2022-06 00:00: 00 Yes [id number] 1{tbl} Take 1 tablet by mouth daily. Alida palumbo Phentermine -Topiramate (Qsymia) 3.75-23 MG oral Capsule 24 Hour Sustained Release 2022-06 00:00: 00 08-22 00:00 :00 No [id number] 1{capsu le} Take 1 capsule by mouth every morning. Alida palumbo Metoprolol Tartrate (LOPRESSOR) 50 MG oral Tablet 2022-06 00:00: 00 08-21 00:00 :00 No [id number] TAKE 1 TABLET (50MG TOTAL) BY MOUTH DAILY. Alida palumbo Lemborexant (DayVigo) 5 MG oral Tablet 2022-06 00:00: 00 05-29 00:00 :00 No [id number] 1{tbl} Take 1 tablet by mouth nightly. Alida palumbo Bupropion HCL XL 150 MG OR TB24 2022-06 00:00: 00 04-27 00:00 :00 No [id number] 150mg Take 1 tablet (150 mg total) by mouth daily. Alida palumbo Cyanocobala min (VIT B12) 1000 MCG/ML injection Solution 2022-06 00:00: 00 05-29 00:00 :00 No [id number] 1000ug Inject 1,000 mcg as directed once a month. Alida palumbo Clindamycin HCl 300 MG oral Capsule 2022-06 00:00: 00 04-27 00:00 :00 No Alida palumbo Ibuprofen (MOTRIN) 600 MG oral Tablet 2022-06 1- 00:00: 00 04-27 00:00 :00 No Alida palumbo Trazodone HCl 50 MG oral Tablet 2022-06 0-06 00:00: 00 04-27 00:00 :00 No [id number] TAKE 1.5 TABLETS BY MOUTH NIGHTLY Alida palumbo Tramadol HCl (ULTRAM) 50 MG oral Tablet 03-12 00:00: 00 Yes Take 1 tablet as needed by oral route for 5 days. Alida palumbo levoFLOXaci n 750 MG oral Tablet 03-12 00:00: 00 04-27 00:00 :00 No Alida palumbo Metronidazo le 500 MG oral Tablet 03-12 00:00: 00 04-27 00:00 :00 No Alida palumbo Diclofenac Sodium 75 MG oral Tablet Delayed Response 03-09 00:00: 00 04-27 00:00 :00 No [id number] 75mg Q.5D Take 1 tablet (75 mg total) by mouth 2 times daily as needed. Alida palumbo Acetaminoph en-Codeine 300-30 MG oral Tablet 03-09 00:00: 00 04-27 00:00 :00 No [id number] 1{tbl} QD Take 1 tablet by mouth daily as needed for pain. Alida palumbo Cyanocobala min (VIT B12) 1000 MCG/ML injection Solution 02-25 00:00: 00 Yes [id number] INJECT 1ML DIRECTED ONCE A WEEK Alida palumbo Metoprolol Tartrate (LOPRESSOR) 50 MG oral Tablet 8-08 00:00: 00 04-27 00:00 :00 No [id number] TAKE 1 TABLET (50MG TOTAL) BY MOUTH DAILY Alida palumbo Trazodone HCl 50 MG oral Tablet 7-14 00:00: 00 Yes [id number] 75mg Take 1.5 tablets (75 mg total) by mouth nightly Alida palumbo Tirzepatide (Mounjaro) 2.5 MG/0.5ML subcutaneou s Solution Pen-injecto r 7-10 00:00: 00 03-09 00:00 :00 No [id number] 2.5mg Inject 0.5 mL (2.5 mg total) into the skin once a week Alida palumbo Phentermine HCl 37.5 MG oral Tablet 11-24 00:00: 00 03-09 00:00 :00 No [id number] TAKE 1 TABLET BY MOUTH EVERY MORNING BEFORE BREAKFAST Alida palumbo Acetaminoph en-Codeine #3 300-30 MG oral Tablet 08-15 00:00: 00 03-09 00:00 :00 No Alida palumbo Ondansetron HCl 4 MG oral Tablet 08-15 00:00: 00 03-09 00:00 :00 No Alida palumbo Levonorgest -Eth Estrad -Day (Daysee) 0.15-0.03 &0.01 MG oral Tablet 08-14 00:00: 00 04-27 00:00 :00 No [id number] 1{tbl} Take 1 tablet by mouth daily Alida palumbo Nitrofurant oin Monohyd Macro (Macrobid) 100 MG oral Capsule 08-14 00:00: 00 03-09 00:00 :00 No [id number] 100mg Take 1 capsule (100 mg total) by mouth 2 times daily Alida palumbo Metoprolol Tartrate (LOPRESSOR) 50 MG oral Tablet 08-11 00:00: 00 Yes [id number] TAKE 1 TABLET (50MG TOTAL) BY MOUTH DAILY Alida palmubo Cyanocobala min (VIT B12) 1000 MCG/ML injection Solution 08-11 00:00: 00 09-03 04:59 :00 No [id number] 1000ug Inject 1,000 mcg as directed once a week for 4 doses Alida palumbo Escitalopra m Oxalate 20 MG oral Tablet 2-13 00:00: 00 Yes [id number] 20mg Take 1 tablet (20 mg total) by mouth daily Alida palumbo Trazodone HCl 50 MG oral Tablet 2-06 00:00: 00 Yes [id number] 75mg Take 1.5 tablets (75 mg total) by mouth nightly Alida palumbo Tirzepatide (Mounjaro) 7.5 MG/0.5ML subcutaneou s Solution Pen-injecto r - 00:00: 00 Yes [id number] 7.5mg Inject 0.5 mL (7.5 mg total) into the skin once a week Alida palumbo Phentermine HCl 37.5 MG oral Tablet 07-05 00:00: 00 Yes [id number] 37.5mg Take 1 tablet (37.5 mg total) by mouth every morning (before breakfast) Alida palumbo Ondansetron (Zofran ODT) 4 MG oral TABLET DISPERSIBLE 07-05 00:00: 00 03-09 00:00 :00 No [id number] 4mg Q.[id number] 3D Take 1 tablet (4 mg total) by mouth every 8 hours as needed for nausea Alida palumbo Bupropion HCL XL 150 MG OR TB24 07-05 00:00: 00 03-09 00:00 :00 No [id number] 150mg Take 1 tablet (150 mg total) by mouth daily Alida palumbo Tirzepatide (Mounjaro) 7.5 MG/0.5ML subcutaneou s Solution Pen-injecto r 2021-06 00:00: 00 Yes [id number] 7.5mg Inject 0.5 mL (7.5 mg total) into the skin once a week Alida palumbo Escitalopra m Oxalate (Lexapro) 20 MG oral Tablet 2021-06 00:00: 00 Yes [id number] 20mg Take 1 tablet (20 mg total) by mouth daily Alida palumbo Clindamycin Phosphate (Clindagel) 1 % apply externally Gel 2021-06 00:00: 00 Yes [id number] Apply to area 4 times daily for 10 days Alida palumbo Doxycycline Hyclate 100 MG oral Tablet 2021-06 00:00: 00 Yes [id number] 100mg Take 1 tablet (100 mg total) by mouth 2 times daily Alida palumbo Hydroquinon e 4 % apply externally Cream 2021-06 00:00: 00 03-09 00:00 :00 No [id number] Apply 1 applicatio n topically 2 times daily Alida palumbo Etonogestre deepali-Ethinyl Estradiol 0.12-0.015 MG/24HR vaginal RING 2021-06 00:00: 00 03-09 00:00 :00 No 1 ring Alida palumbo Bupropion HCL XL 150 MG OR TB24 2021-06 00:00: 00 Yes [id number] 150mg Take 1 tablet (150 mg total) by mouth daily Alida palumbo Metoprolol Tartrate 50 MG oral Tablet 2021-06 00:00: 00 Yes [id number] TAKE 1 TABLET (50MG TOTAL) BY MOUTH DAILY Alida palumbo Trazodone HCl 50 MG oral Tablet 2021-06 00:00: 00 Yes [id number] 75mg Take 1.5 tablets (75 mg total) by mouth nightly Alida palumbo Phentermine HCl 37.5 MG oral Tablet 2021-06 00:00: 00 Yes [id number] 37.5mg Take 1 tablet (37.5 mg total) by mouth every morning (before breakfast) Alida palumbo Escitalopra m Oxalate 10 MG oral Tablet 2021-06 00:00: 00 05-15 00:00 :00 No [id number] 10mg Take 1 tablet (10 mg total) by mouth daily Alida palumbo Tirzepatide (Mounjaro) 5 MG/0.5ML subcutaneou s Solution Pen-injecto r 2021-06 00:00: 00 Yes [id number] 5mg Inject 0.5 mL (5 mg total) into the skin once a week Alida palumbo Phentermine HCl 37.5 MG oral Tablet 2021-06 00:00: 00 Yes [id number] 37.5mg Take 1 tablet (37.5 mg total) by mouth every morning (before breakfast) Alida palumbo Ondansetron (Zofran ODT) 4 MG oral TABLET DISPERSIBLE 2021-06 00:00: 00 Yes [id number] 4mg Q.[id number] 3D Take 1 tablet (4 mg total) by mouth every 8 hours as needed for nausea Alida palumbo Bupropion HCL XL 150 MG OR TB24 2021-06 00:00: 00 Yes [id number] 150mg Take 1 tablet (150 mg total) by mouth daily Alida palumbo Escitalopra m Oxalate 10 MG oral Tablet 2021-06 00:00: 00 Yes [id number] 10mg Take 1 tablet (10 mg total) by mouth daily Alida palumbo Metoprolol Tartrate 50 MG oral Tablet 2021-06 00:00: 00 Yes [id number] TAKE 1 TABLET (50MG TOTAL) BY MOUTH DAILY Alida palumbo Trazodone HCl 50 MG oral Tablet 2021-06 00:00: 00 Yes [id number] 75mg Take 1.5 tablets (75 mg total) by mouth nightly Alida palumbo Phentermine HCl 37.5 MG oral Tablet 2021-06 00:00: 00 04-18 00:00 :00 No [id number] 37.5mg Take 1 tablet (37.5 mg total) by mouth every morning (before breakfast) Alida palumbo Tirzepatide 2.5 MG/0.5ML subcutaneou s Solution Pen-injecto r 03-15 00:00: 00 Yes [id number] 2.5mg Inject 0.5 mL (2.5 mg total) into the skin once a week Alida palumbo Trazodone HCl 50 MG oral Tablet 03-15 00:00: 00 Yes [id number] 75mg Take 1.5 tablets (75 mg total) by mouth nightly Alida palumbo Phentermine HCl 37.5 MG oral Tablet 03-15 00:00: 00 Yes [id number] 37.5mg Take 1 tablet (37.5 mg total) by mouth every morning (before breakfast) Alida palumbo Escitalopra m Oxalate 10 MG oral Tablet 03-15 00:00: 00 Yes [id number] 10mg Take 1 tablet (10 mg total) by mouth daily Alida palumbo Bupropion HCL XL 150 MG OR TB24 03-15 00:00: 00 Yes [id number] 150mg Take 1 tablet (150 mg total) by mouth daily Alida palumbo Phentermine HCl 37.5 MG oral Tablet 02-14 00:00: 00 03-15 00:00 :00 No [id number] 37.5mg Take 1 tablet (37.5 mg total) by mouth every morning (before breakfast) Alida palumbo Nitrofurant oin Monohyd Macro (Macrobid) 100 MG oral Capsule 17 00:00: 00 03-15 00:00 :00 No [id number] 100mg Take 1 capsule (100 mg total) by mouth 2 times daily Alida palumbo Doxepin HCl 3 MG oral Tablet 8-15 00:00: 00 03-15 00:00 :00 No [id number] 1{tbl} Take 1 tablet by mouth nightly Alida palumbo Bupropion HCL XL 150 MG OR TB24 8-10 00:00: 00 03-15 00:00 :00 No [id number] 150mg TAKE 1 TABLET (150 MG TOTAL) BY MOUTH DAILY Alida palumbo Escitalopra m Oxalate 10 MG oral Tablet 8-10 00:00: 00 03-15 00:00 :00 No [id number] 10mg TAKE 1 TABLET (10 MG TOTAL) BY MOUTH DAILY Alida palumbo Metoprolol Tartrate 50 MG oral Tablet 7-14 00:00: 00 Yes [id number] TAKE 1 TABLET (50MG TOTAL) BY MOUTH DAILY Alida palumbo Phenazopyri dine HCl 200 MG oral Tablet -18 00:00: 00 03-15 00:00 :00 No [id number] 200mg Q.[id number] 3D Take 1 tablet (200 mg total) by mouth 3 times daily as needed for pain Alida palumbo Vital Signs Vital Name Observation Time Observation Value Comments S melissace Systolic blood pressure 2023-10-09 19:21:00 118 mm[Hg] Alida Lopezo ld - External Diastolic blood pressure 2023-10-09 19:21:00 68 mm[Hg] Alida rivers - External Heart rate 2023-10-09 19:21:00 80 /min Basil Rhodes - External Body temperature 2023-10-09 19:21:00 36.83 Imani Alida Rhodes - External Respiratory rate 2023-10-09 19:21:00 16 /min Alida Rhodes - External Body height 2023-10-09 19:21:00 165.1 cm Marcia Rhodes - External Body weight 2023-10-09 19:21:00 87.091 kg Marcia Rhodes - External BMI 2023-10-09 19:21:00 31.95 kg/m2 Marcia Rhodes - External Oxygen saturation in Arterial blood by Pulse oximetry 2023-10-09 19:21:00 98 /min Alida Valentin ld - External Systolic blood pressure 2023-08-23 16:36:00 112 mm[Hg] Alida Lopezo ld - External Diastolic blood pressure 2023-08-23 16:36:00 72 mm[Hg] Alida Valentin ld - External Heart rate 2023-08-23 16:36:00 84 /min Frankse y Carmelo - External Body temperature 2023-08-23 16:36:00 36.56 Imani Alida Seybold - External Respiratory rate 2023-08-23 16:36:00 14 /min Alida Seybold - External Body height 2023-08-23 16:36:00 165.1 cm Marcia ey Seybold - External Body weight 2023-08-23 16:36:00 82.555 kg Marcia ey Seybold - External BMI 2023-08-23 16:36:00 30.29 kg/m2 Marcia ey Seybold - External Systolic blood pressure 2023-05-29 14:15:00 112 mm[Hg] Alida Seybo ld - External Diastolic blood pressure 2023-05-29 14:15:00 78 mm[Hg] Alida Seybo ld - External Heart rate 2023-05-29 14:15:00 72 /min Kelse y Seybold - External Body temperature 2023-05-29 14:15:00 37 Imani Alida Seybold - External Respiratory rate 2023-05-29 14:15:00 16 /min Alida Seybold - External Body height 2023-05-29 14:15:00 165.1 cm Marcia ey Seybold - External Body weight 2023-05-29 14:15:00 84.596 kg Marcia ey Seybold - External BMI 2023-05-29 14:15:00 31.04 kg/m2 Marcia ey Seybold - External Oxygen saturation in Arterial blood by Pulse oximetry 2023-05-29 14:15:00 97 /min Alida Seybo ld - External Systolic blood pressure 2023-05-21 21:05:00 116 mm[Hg] Alida Seybo ld - External Diastolic blood pressure 2023-05-21 21:05:00 72 mm[Hg] Alida Seybo ld - External Heart rate 2023-05-21 21:05:00 70 /min Kelse y Seybold - External Body temperature 2023-05-21 21:05:00 36.33 Imani Alida Seybold - External Respiratory rate 2023-05-21 21:05:00 14 /min Alida Seybold - External Body height 2023-05-21 21:05:00 165.1 cm Marcia ey Seybold - External Body weight 2023-05-21 21:05:00 86.637 kg Marcia ey Seybold - External BMI 2023-05-21 21:05:00 31.78 kg/m2 Marcia ey Seybold - External Systolic blood pressure 2023-04-27 15:26:00 112 mm[Hg] Alida Seybo ld - External Diastolic blood pressure 2023-04-27 15:26:00 68 mm[Hg] Alida Seybo ld - External Heart rate 2023-04-27 15:26:00 82 /min Kelse y Seybold - External Body temperature 2023-04-27 15:26:00 36.06 Imani Alida Seybold - External Respiratory rate 2023-04-27 15:26:00 15 /min Alida Seybold - External Body height 2023-04-27 15:26:00 165.1 cm Marcia ey Seybold - External Body weight 2023-04-27 15:26:00 81.647 kg Marcia ey Seybold - External BMI 2023-04-27 15:26:00 29.95 kg/m2 Marcia ey Seybold - External Systolic blood pressure 2023-03-09 15:18:00 122 mm[Hg] Alida Seybo ld - External Diastolic blood pressure 2023-03-09 15:18:00 67 mm[Hg] Alida Seybo ld - External Heart rate 2023-03-09 15:18:00 87 /min Kelse y Seybold - External Body temperature 2023-03-09 15:18:00 37.17 Imani Alida Seybold - External Respiratory rate 2023-03-09 15:18:00 14 /min Alida Seybold - External Body height 2023-03-09 15:18:00 165.1 cm Marcia ey Seybold - External Body weight 2023-03-09 15:18:00 78.926 kg Marcia ey Seybold - External BMI 2023-03-09 15:18:00 28.96 kg/m2 Marcia ey Seybold - External Oxygen saturation in Arterial blood by Pulse oximetry 2023-03-09 15:18:00 99 /min Alida Seybo ld - External Systolic blood pressure 2022-08-14 20:49:00 104 mm[Hg] Alida Seybo ld - External Diastolic blood pressure 2022-08-14 20:49:00 66 mm[Hg] Alida Seybo ld - External Heart rate 2022-08-14 20:49:00 87 /min Kelse y Seybold - External Body temperature 2022-08-14 20:49:00 36.67 Imani Alida Seybold - External Respiratory rate 2022-08-14 20:49:00 14 /min Alida Seybold - External Body height 2022-08-14 20:49:00 165.1 cm Marcia ey Seybold - External Body weight 2022-08-14 20:49:00 80.74 kg Marcia ey Seybold - External BMI 2022-08-14 20:49:00 29.62 kg/m2 Marcia ey Seybold - External Systolic blood pressure 2022-05-15 21:40:00 122 mm[Hg] Alida Seybo ld - External Diastolic blood pressure 2022-05-15 21:40:00 74 mm[Hg] Alida Seybo ld - External Heart rate 2022-05-15 21:40:00 89 /min Kelse y Seybold - External Body temperature 2022-05-15 21:40:00 36.78 Imani Alida Seybold - External Respiratory rate 2022-05-15 21:40:00 14 /min Alida Seybold - External Body height 2022-05-15 21:40:00 165.1 cm Marcia ey Seybold - External Body weight 2022-05-15 21:40:00 92.08 kg Marcia ey Seybold - External BMI 2022-05-15 21:40:00 33.78 kg/m2 Marcia ey Seybold - External Oxygen saturation in Arterial blood by Pulse oximetry 2022-05-15 21:40:00 99 /min Alida Seybo ld - External Systolic blood pressure 2022-04-18 21:07:00 126 mm[Hg] Alida Seybo ld - External Diastolic blood pressure 2022-04-18 21:07:00 72 mm[Hg] Alida Seybo ld - External Heart rate 2022-04-18 21:07:00 93 /min Kelse y Seybold - External Body temperature 2022-04-18 21:07:00 36.11 Imani Alida Matthewsybold - External Respiratory rate 2022-04-18 21:07:00 14 /min Alida Seybold - External Body height 2022-04-18 21:07:00 165.1 cm Marcia malloy Seybold - External Body weight 2022-04-18 21:07:00 100.245 kg Marcia ey Seybold - External BMI 2022-04-18 21:07:00 36.78 kg/m2 Marcia ey Seybold - External Oxygen saturation in Arterial blood by Pulse oximetry 2022-04-18 21:07:00 99 /min Alida Seybo ld - External Systolic blood pressure 2022-03-15 13:30:00 100 mm[Hg] Alida Seybo ld - External Diastolic blood pressure 2022-03-15 13:30:00 56 mm[Hg] Alida Matthewsybo ld - External Heart rate 2022-03-15 13:30:00 90 /min Basil y Seybold - External Body temperature 2022-03-15 13:30:00 36.67 Imani Alida Seybold - External Respiratory rate 2022-03-15 13:30:00 14 /min Alida Matthewsybold - External Body height 2022-03-15 13:30:00 165.1 cm Marcia ey Seybold - External Body weight 2022-03-15 13:30:00 104.781 kg Marcia ey Seybold - External BMI 2022-03-15 13:30:00 38.44 kg/m2 Marcia ey Seybold - External Procedures Procedure Date / Time Performed Performing Clinicia n Source LS RAPID FLU ASSAY-LAB TEST 2023-05-21 21:24:00 Nandini Burlesondavid Matthewsybjose l - External Encounters Start Date/Time End Date/Time Encounter Type Admission Type Attending [facility] Care Facility Care Department Encounter ID Source 2023-12-31 15:30:00 2023-12-31 15:30:00 Outpatient ELIZABETH DEJESUS [id number] Alida Rhodes 2023-12-18 00:00:00 2023-12-18 00:00:00 Outpatient ELIZABETH DEJESUS [id number] Alida Rhodes 2023-12-14 00:00:00 2023-12-14 00:00:00 Outpatient HUNDL, ELIZABETH FLORES [id number] [facility] 2023-12-11 00:00:00 2023-12-11 00:00:00 Outpatient HUNDL, ELIZABETH FLORES [id number] Alida Seybold 2023-12-06 00:00:00 2023-12-06 00:00:00 Outpatient HUNDL, ELIZABETH FLORES [id number] [facility] 2023-12-06 00:00:00 2023-12-06 00:00:00 Outpatient HUNDL, ELIZABETH FLORES [id number] [facility] 2023-12-03 10:30:00 2023-12-03 10:30:00 Outpatient HUNDL, ELIZABETH FLORES [id number] [facility] 2023-11-21 00:00:00 2023-11-21 00:00:00 Outpatient HUNDL, ELIZABETH FLORES [id number] [facility] 2023-11-05 08:30:00 2023-11-05 08:30:00 Outpatient ZALAVARRIA, YOSSI [id number] [facility]05 00:00:00 2023-11-05 00:00:00 Outpatient HUNDL, ELIZABETH FLORES [id number] Alida Seybold 2023-10-24 00:00:00 2023-10-24 00:00:00 Outpatient HUNDL, ELIZABETH FLORES [id number] Alida Seybold 2023-10-16 00:00:00 2023-10-16 00:00:00 Outpatient HUNDL, ELIZABETH FLORES [id number] Alida Seybold 2023-10-09 14:30:00 2023-10-09 14:30:00 Outpatient HUNDL, ELIZABETH FLORES [id number] Alida Seybold 2023-09-18 00:00:00 2023-09-18 00:00:00 Outpatient HUNDL, ELIZABETH FLORES [id number] Alida Seybold 2023-09-10 00:00:00 2023-09-10 00:00:00 Outpatient HUNDL, ELIZABETH ALIDA FLORES [id number] [facility] 2023-08-23 10:30:00 2023-08-23 10:30:00 Outpatient HUNDL, ELIZABETH ALIDA FLORES [id number] [facility] 2023-08-22 00:00:00 2023-08-22 00:00:00 Outpatient HUNDL, ELIZABETH FLORES [id number] [facility] 2023-08-22 00:00:00 2023-08-22 00:00:00 Outpatient BENJYNANDINI [facility] [id number] [facility]23 00:00:00 Outpatient HUNDL[facility] [id number] [facility]23-07-26 00:00:00 2023-07-26 00:00:00 Outpatient HUNDL, ELIZABETH FLORES [id number] [facility] 2023-07-26 00:00:00 2023-07-26 00:00:00 Outpatient HUNDL, ELIZABETH FLORES [id number] [facility] 2023-07-18 00:00:00 2023-07-18 00:00:00 Outpatient HUNDL, ELIZABETH FLORES [id number] [facility] 2023-07-17 00:00:00 2023-07-17 00:00:00 Outpatient HUNDL, ELIZABETH FLORES [id number] [facility] 2023-06-20 00:00:00 2023-06-20 00:00:00 Outpatient HUNDL, ELIZABETH FLORES [id number] [facility] 2023-06-19 00:00:00 2023-06-19 00:00:00 Outpatient HUNDL, ELIZABETH FLORES [id number] [facility] 2023-05-29 09:15:00 2023-05-29 09:15:00 Outpatient LAB90 ALIDA FLORES [id number] [facility] 2023-05-29 08:30:00 2023-05-29 08:30:00 Outpatient KARI DEJESUSAlessandro FLORES [id number] [facility] 2023-05-27 00:00:00 2023-05-27 00:00:00 Outpatient GC_GCBZW_Ka diyala_S PRIV PRIV [id number] [facility] 2023-05-24 00:00:00 2023-05-24 00:00:00 Outpatient JEANMARIEL, ELIZABETH FLORES [id number] [facility] 2023-05-22 00:00:00 2023-05-22 00:00:00 Outpatient HUNDDeepali, ELIZABETH FLORES [id number] [facility] 2023-05-21 15:00:00 2023-05-21 15:00:00 Outpatient BENJY, NANDINI FLORES [id number] [facility] 2023-04-30 00:00:00 2023-04-30 00:00:00 Outpatient JEANMARIEL, ELIZABETH FLORES [id number] [facility] 2023-04-30 00:00:00 2023-04-30 00:00:00 Outpatient HUNDL, ELIZABETH FLORES [id number] [facility] 2023-04-29 00:00:00 2023-04-29 00:00:00 Outpatient GC_GCBZW_Ka diyala_S PRIV PRIV [id number] [facility] 2023-04-27 10:00:00 2023-04-27 10:00:00 Outpatient JEANMARIEL, ELIZABETH FLORES [id number] [facility] 2023-04-26 14:30:00 2023-04-26 14:30:00 Outpatient HUNDDeepali ELIZABETH FLORES [id number] [facility] 2023-04-25 00:00:00 2023-04-25 00:00:00 Outpatient HUNDDeepali ELIZABETH FLORES [id number] [facility] 2023-04-19 00:00:00 2023-04-19 00:00:00 Outpatient JEANMARIEL ELIZABETH FLORES [id number] [facility] 2023-04-12 14:30:00 2023-04-12 14:30:00 Outpatient ELIZABETH DEJESUSDAVID FLORES [id number] [facility] 2023-04-06 10:30:00 2023-04-06 10:30:00 Outpatient ELIZABETH DEJESUS ALIDA FLORES [id number] [facility] 2023-03-27 15:30:00 2023-03-27 15:30:00 Outpatient ELIZABETH DEJESUS ALIDA FLORES [id number] [facility] 2023-03-26 00:00:00 2023-03-26 00:00:00 Outpatient GC_GCBZW_Ka diyala_S PRIV PRIV [id number] [facility] 2023-03-26 00:00:00 2023-03-26 00:00:00 Outpatient GC_GCBZW_Ka diyala_S PRIV PRIV [id number] [facility] 2023-03-23 00:00:00 2023-03-23 00:00:00 Outpatient ELIZABETH DEJESUS ALIDA FLORES [id number] [facility] 2023-03-22 11:00:00 2023-03-22 11:00:00 Outpatient ELIZABETH DEJESUS ALIDA FLORES [id number] [facility] 2023-03-13 00:00:00 2023-03-13 00:00:00 Outpatient GC_GCBZW_Ka diyala_S PRIV PRIV [id number] [facility] 2023-03-12 00:00:00 2023-03-12 00:00:00 Outpatient GC_GCBZW_Ka diyala_S PRIV PRIV [id number] [facility] 2023-03-12 00:00:00 2023-03-12 00:00:00 Outpatient GC_GCBZW_Ka diyala_S PRIV PRIV [id number] [facility] 2023-03-09 10:15:00 2023-03-09 10:15:00 Outpatient SAM GROVER [id number] [facility] 2023-03-08 09:45:00 2023-03-08 09:45:00 Outpatient PROVIDER, WALE FLORES [id number] [facility] 2023-03-08 00:00:00 2023-03-08 00:00:00 Outpatient GC_GCBZW_Ka diyala_S PRIV [facility] [id number] [facility] 2023-02-22 00:00:00 2023-02-22 00:00:00 Outpatient ELIZABETH DEJESUS [id number] [facility] 2023-01-23 00:00:00 2023-01-23 00:00:00 Outpatient ELIZABETH DEJESUS [id number] [facility] 2023-01-01 00:00:00 2023-01-01 00:00:00 Outpatient MD ALIDA ORTEGA [id number] [facility] 2022-12-27 00:00:00 2022-12-27 00:00:00 Outpatient ELIZABETH DEJESUS [id number] [facility] 2022-12-27 00:00:00 2022-12-27 00:00:00 Outpatient ELIZABETH DEJESUS [id number] [facility] 2022-12-25 00:00:00 2022-12-25 00:00:00 Outpatient ELIZABETH DEJESUS [id number] [facility] 2022-11-24 00:00:00 2022-11-24 00:00:00 Outpatient ELIZABETH DEJESUS [id number] [facility] 2022-11-23 00:00:00 2022-11-23 00:00:00 Outpatient ELIZABETH DEJESUS [id number] [facility] 2022-10-18 00:00:00 2022-10-18 00:00:00 Outpatient ELIZABETH DEJESUS [id number] [facility] 2022-10-02 00:00:00 2022-10-02 00:00:00 Out[facility] [id number] [facility] 2022-[facility]-07 00:00:00 2022-09-07 00:00:00 Outpatient HUNDL, ELIZABETH FLORES [id number] [facility] 2022-09-03 00:00:00 2022-09-03 00:00:00 Outpatient HUNDL, ELIZABETH FLORES [id number] [facility] 2022-08-31 00:00:00 2022-08-31 00:00:00 Outpatient HUNDL, ELIZABETH FLORES [id number] [facility] 2022-08-30 00:00:00 2022-08-30 00:00:00 Outpatient HUNDL, ELIZABETH FLORES [id number] [facility] 2022-08-28 11:00:00 2022-08-28 11:00:00 Outpatient HUNDL, ELIZABETH FLORES [id number] [facility] 2022-08-22 00:00:00 2022-08-22 00:00:00 Outpatient HUNDL, ELIZABETH FLORES [id number] [facility] 2022-08-17 00:00:00 2022-08-17 00:00:00 Outpatient HUNDL, ELIZABETH FLORES [id number] [facility] 2022-08-14 15:45:00 2022-08-14 15:45:00 Outpatient LAB90 ALIDA FLORES [id number] [facility] 2022-08-14 15:00:00 2022-08-14 15:00:00 Outpatient HUNDL, ELIZABETH FLORES [id number] [facility] 2022-08-14 15:00:00 2022-08-14 15:00:00 Outpatient HUNDL, ELIZABETH FLORES [id number] [facility] 2022-08-10 00:00:00 2022-08-10 00:00:00 Outpatient HUNDL, ELIZABETH FLORES [id number] [facility] 2022-07-31 00:00:00 2022-07-31 00:00:00 Outpatient HUNDL, ELIZABETH FLORES [id number] [facility] 2022-07-24 00:00:00 2022-07-24 00:00:00 Outpatient HUNDL, ELIZABETH FLORES [id number] Alida [facility]bold 2022-07-06 00:00:00 2022-07-06 00:00:00 Outpatient HUNDL, ELIZABETH FLORES [id number] Alida Seybold 2022-07-06 00:00:00 2022-07-06 00:00:00 Outpatient HUNDL, ELIZABETH FLORES [id number] Alida Seybold 2022-07-04 00:00:00 2022-07-04 00:00:00 Outpatient HUNDL, ELIZABETH FLORES [id number] Alida Seybold 2022-07-04 00:00:00 2022-07-04 00:00:00 Outpatient HUNDL, ELIZABETH FLORES [id number] Alida Seybold 2022-07-03 00:00:00 2022-07-03 00:00:00 Outpatient HUNDL, ELIZABETH FLORES [id number] Alida Seybold 2022-06-27 00:00:00 2022-06-27 00:00:00 Outpatient HUNDL, ELIZABETH FLORES [id number] Alida Seybold 2022-06-05 00:00:00 2022-06-05 00:00:00 Outpatient HUNDL, ELIZABETH FLORES [id number] Alida Seybold 2022-05-17 00:00:00 2022-05-17 00:00:00 Outpatient HUNDL, ELIZABETH FLORES [id number] Alida Seybold 2022-05-17 00:00:00 2022-05-17 00:00:00 Outpatient HUNDL, ELIZABETH FLORES [id number] Alida Seybold 2022-05-15 15:30:00 2022-05-15 15:30:00 Outpatient HUNDL, ELIZABETH FLORES [id number] Alida Seybold 2022-05-14 00:00:00 2022-05-14 00:00:00 Outpatient HUNDL, ELIZABETH FLORES [id number] Alida Seybold 2022-05-12 16:30:00 2022-05-12 16:30:00 Outpatient HUNDL, ELIZABETH ALIDA FLORES [id number] Alida Rhodes 2022-05-04 15:30:00 2022-05-04 15:30:00 Outpatient NENA YOVANYETHAN FLORES [id number] Alida Matthewsjose l 2022-05-02 00:00:00 2022-05-02 00:00:00 Outpatient ANJELICA, ELIZABETH FLORES [id number] [facility]ida Rhodes 2022-05-02 00:00:00 2022-05-02 00:00:00 Outpatient ANJELICA ELIZABETH FLORES [id number] [facility]ida Rhodes 2022-05-01 00:00:00 2022-05-01 00:00:00 Outpatient ANJELICA, ELIZABETH FLORES [id number] [facility] 2022-04-20 15:30:00 2022-04-20 15:30:00 Outpatient YOVANY BARRETT [id number] [facility] 2022-04-19 00:00:00 2022-04-19 00:00:00 Outpatient ANJELICA ELIZABETH ALIDA FLORES [id number] [facility] 2022-04-18 16:00:00 2022-04-18 16:00:00 Outpatient HUNDDeepali, ELIZABETH ALIDA FLORES [id number] [facility] 2022-04-13 11:30:00 2022-04-13 11:30:00 Outpatient YOVANY BARRETT [id number] [facility] 2022-04-12 08:30:00 2022-04-12 08:30:00 Outpatient ANJELICA ELIZABETH FLORES [id number] [facility] 2022-04-10 00:00:00 2022-04-10 00:00:00 Outpatient HUNDDeepali ELIZABETH FLORES [id number] [facility] 2022-04-07 09:00:00 2022-04-07 09:00:00 Outpatient AKOGLUSHENG [id number] [facility] 2022-03-30 15:45:00 2022-03-30 15:45:00 Outpatient AMANDA LINNSEY ALIDA [id number] Alida Rhodes 2022-03-27 09:30:00 2022-03-27 09:30:00 Outpatient HOAMANDA ALIDA FLORES [id number] Alida Rhodes 2022-03-16 00:00:00 2022-03-16 00:00:00 Outpatient HUNDL, ELIZABETH ALIDA FLORES [id number] [facility] 2022-03-15 08:30:00 2022-03-15 08:30:00 Outpatient HUNDL, ELIZABETH ALIDA FLORES [id number] [facility] 2022-03-15 00:00:00 2022-03-15 00:00:00 Outpatient HUNDL, ELIZABETH FLORES [id number] [facility]ida Rhodes 2022-02-24 15:30:00 2022-02-24 15:30:00 Outpatient HUNDL, ELIZABETH FLORES [id number] [facility] Rhodes 2022-02-01 00:00:00 2022-02-01 00:00:00 Outpatient HUNDL, ELIZABETH ALIDA FLORES [id number] Alida Rhodes 2022-01-30 17:15:00 2022-01-30 17:15:00 Outpatient LAB90 ALIDA FLORES [id number] [facility] 2022-01-30 16:30:00 2022-01-30 17:00:00 Office Visit Elizabeth Dejesus [id number] [id number] Alida Rhodes 2022-01-30 08:00:00 2022-01-30 08:00:00 Outpatient HUNDL, ELIZABETH FLORES [id number] Alida ybjose l 2022-01-10 14:00:00 2022-01-10 14:00:00 Outpatient HUNDL, ELIZABETH FLORES [id number] [facility] 2022-01-10 00:00:00 2022-01-10 00:00:00 Outpatient HUNDL, ELIZABETH FLORES [id number] [facility] 2022-01-02 00:00:00 2022-01-02 00:00:00 Outpatient ELIZABETH DEJESUS ALIDA [id number] [facility] 2021-12-29 13:00:00 2021-12-29 13:30:00 Office Visit Elizabeth Dejesus 1.2.840.114 [id number] [facility] 2021-10-31 00:00:00 2021-10-31 00:00:00 Outpatient JORGE BURLESONAN ALIDA FLORES [id number] [facility] 2021-01-12 11:30:00 2021-01-12 11:30:00 Outpatient NANDINI BURLESON [id number] [facility] 2021-01-12 08:30:00 2021-01-12 08:30:00 Outpatient NANDINI BURLESON [id number] [facility] Notes Date/Time Note Provider Source 2023-10-09 14:28:57 0580-02-72I84:28:57F ormatting of this note is different from the original.Chief ComplaintPatient presents withFollow-upWeight managemnentPaula WILDA IniguezN 14296-5Zcvvp KkeuEF5271-92-95O90:29:13Nurse NoteTXT1.2.840.056932.1.13.131.2.7 .2.266333|[id number] for patient ynvv09166-4Gcqrx NoteLNNARRATIVEFormatted C-CDA narrative textKELNORMAN SPECIALTY HOSPITAL – NORMANKaylinUniversity Hospitals Parma Medical Center[address] [facility] [id number] [id number]:29:131.2.840.1143 50.1.72.3.15|1.2.840.312305.1.13.1 31.2.7.2.727879_[id number] [facility] 2023-08-23 11:17:06 8482-16-82R05:17:06F ormatting of this note might be different from the original.Kenalog injection was given in the L deltoid, pt tolerated with no adverse effects 85595-0Jfqgk ByetHB4332-38-96Y56:17:38Nurse NoteTXT1.2.840.309431.1.13.131.2.7 .2.726302|[id number] for patient kwla82861-3Wmsey NoteLNNARRATIVEFormatted C-CDA narrative [id number] Surya ALCANTARA[id number] [id number]:17:381.2.840.1143 50.1.72.3.15|1.2.840.187035.1.13.1 31.2.7.2.727879_[id number] Farzaneh London LVN [facility] 2023-08-23 10:39:45 7780-35-67D45:39:45F ormatting of this note is different from the original.Chief ComplaintPatient presents withFollow-upFollow up on weight [place] [address]-1Cgtil KjjjJS7078-09-81X76:40:00Nurse NoteTXT1.2.840.358526.1.13.131.2.7 .2.085020|[id number] for patient wypa22559-5Tbboa NoteLNNARRATIVEFormatted C-CDA narrative [id number] Hurst [place] [address] [id number] [id number]:40:001.2.840.1143 50.1.72.3.15|1.2.840.130183.1.13.1 31.2.7.2.727879_[id number] Lisette Del Cid MA [facility]"
[2023-12-21] MEDS ORDERED: MORPHINE 4 MG/ML SYR ONE (00:08)
--- NOTE | 2023-12-21 01:26 | EDPHYS ---
Physician Documentation [facility] Name: Luanne Carlin Age: 38 yrs Sex: Female : 1985 Arrival Date: 12/20/2023 Time: 23:19 Bed 7 Private MD: ED Physician Felix Spear HPI: 12/20 00:00 This 38 yrs old Female presents to ER via Ambulatory with complaints of Knee Injury. cp 00:00 The patient presents with an injury, pain, that is acute. The complaints affect the cp left knee and right knee. 00:00 Context: pain [place] [employer] cp 00:00 Onset: The symptoms/episode began/occurred just prior to arrival. Associated signs and cp symptoms: Pertinent negatives neck pain and/or back pain. Historical: - Home Meds: 12/19 23:27 metoprolol tartrate 50 mg Oral tab 1 tab 2 times per day [Active]; Lexapro 20 mg Oral al5 tab 1 tab once daily [Active]; trazodone 100 mg oral tablet 1 tab [Active]; - PMHx: 23:27 Anxiety; gallstone; Hypertensive disorder; al5 - PSHx: 23:27 section; Cholecystectomy; Tonsillectomy; al5 - Immunization history:: Adult Immunizations up to date. - Infectious Disease History:: Denies. - Social history:: Smoking status: Reported history of juuling and/or vaping. ROS: 12/20 00:05 MS/extremity: Positive for pain, of the left knee and right knee, cp 00:05 Neck: Negative for pain with movement, pain at rest, stiffness, cp 00:05 Back: Negative for pain at rest, pain with movement, 00:05 All other systems are negative, Exam: 00:10 Constitutional: The patient appears in no acute distress, alert, awake, well developed, cp well nourished, uncomfortable, 00:10 Head/Face: Normocephalic, atraumatic. cp 00:10 Neck: ROM/movement: is normal, is supple, without pain, no range of motions limitations, 00:10 Chest/axilla: Inspection: normal, 00:10 Cardiovascular: Rate: tachycardic, Rhythm: regular, 00:10 Respiratory: the patient does not display signs of respiratory distress, Respirations: normal, no use of accessory muscles, no retractions, labored breathing, is not present, 00:10 Abdomen/GI: Exam negative for discomfort, distension, guarding, Inspection: abdomen appears normal, 00:10 Back: pain, is absent, ROM is normal, 00:10 Musculoskeletal/extremity: Extremities: noted in the right knee: pain, tenderness, There is no evidence of decreased ROM, deformity, noted in the left knee: pain, swelling, tenderness, pain with passive ROM, no evidence of deformity, Pulses: noted to be 2+ in the right dorsalis pedis artery and left dorsalis pedis artery, 00:10 Neuro: Orientation: to person, place \\T\\ time. Mentation: is normal, Motor: moves all fours, Vital Signs: 12/19 23:26 BP 163 / 60; Pulse 100; Resp 18; Temp 97.5(TE); Pulse Ox 98% ; Weight 84.82 kg; Height al5 5 ft. 5 in. ; Pain 03/27; 12/20 01:03 BP 127 / 87; Pulse 93; Resp 16 S; Pulse Ox 97% on R/A; jw7 02:00 BP 136 / 86; Pulse 93; Resp 16 S; Pulse Ox 99% on R/A; jw7 12/19 23:26 Body Mass Index 31.12 (84.82 kg, 165.1 cm) al5 12/19 23:26 Pain Scale: Adult al5 MDM: 12/19 23:34 Patient medically screened. 12/20 01:25 Data reviewed: vital signs, nurses notes, radiologic studies, plain films. 01:25 Differential diagnosis: dislocation, open fracture, closed fracture, contusion, cp dislocation, sprain. I considered the following discharge prescriptions or medication management in the emergency department Medications were administered in the Emergency Department. See MAR. Independent interpretation of the following test(s) in the Emergency Department X-Ray: My interpretation is images of right knee negative for fracture and images of left knee negative for fracture. Response to treatment: the patient's symptoms have markedly improved after treatment, and as a result, I will discharge patient. ED course: Patient placed in left knee immobilizer and crutches given. 12/20 00:02 Order name: XRAY Knee LEFT 3 view 12/20 00:02 Order name: XRAY Knee RIGHT 3 view 12/20 01:25 Order name: Knee Immobilizer; Complete Time: 01:51 cp 12/20 01:25 Order name: Crutches; Complete Time: 01:51 cp Administered Medications: 00:12 Drug: morphine IM 4 mg IM once Route: IM; Site: right deltoid; jj7 02:10 Follow up: Response: No adverse reaction; Marked relief of symptoms jw7 01:40 Drug: Ketorolac IM 60 mg IM once Route: IM; Site: right ventrogluteal; jw7 02:10 Follow up: Response: No adverse reaction; Marked relief of symptoms jw7 01:40 Drug: HYDROcodone-acetaminophen PO 10 mg-325 mg 1 tabs PO once Route: PO; jw7 02:11 Follow up: Response: No adverse reaction; Marked relief of symptoms jw7 Disposition Summary: 12/21/23 01:26 Discharge Ordered Notes: Location: Home cp Problem: new cp Symptoms: have improved cp Condition: Stable cp Diagnosis - Pain in left knee cp - Pain in right knee cp Followup: cp - With: Scotty Barfield MD - When: 5 - 6 days - Reason: Recheck today's complaints Discharge Instructions: - Discharge Summary Sheet cp - How to Use a Knee Immobilizer cp - Acute Knee Pain, Adult cp Forms: - Medication Reconciliation Form cp - Antibiotic Education cp - Prescription Opioid Use cp - Patient Portal Instructions cp - Leadership Thank You Letter cp Prescriptions: - Anaprox DS 550 mg Oral Tablet - take 1 tablet ORAL route every 12 hours As needed; 20 tablet; Refills: 0, cp Product Selection Permitted - Ultram 50 mg Oral Tablet - take 1 tablet ORAL route every 6 hours As needed; 12 tablet; Refills: 0, cp Product Selection Permitted Signatures: Dispatcher [employer] EDMS Roddy Franklin PA PA cp Beatris Brown RN RN jw7 Jessica Cotter RN RN jj7 Rhiannon Carlin RN RN al5 Corrections: (The following items were deleted from the chart) 12/19 23:29 23:27 PSHx: "tummy tuck"; al5 al5 12/20 00:02 00:02 Knee Right 3 View+RAD.RAD.BRZ ordered. EDMS EDMS
--- NOTE | 2023-12-21 01:26 | ER ---
Nurse's Notes [facility] Name: Luanne Carlin Age: 38 yrs Sex: Female : 1985 Arrival Date: 12/20/2023 Time: 23:19 Bed 7 Private MD: Diagnosis: Pain in left knee;Pain in right knee Presentation: 12/19 23:26 Chief complaint: Patient states: [place] the [place] and al5 hurt both knees. Coronavirus screen: At this time, the client does not indicate any symptoms associated with coronavirus-19. Ebola Screen: No symptoms or risks identified at this time. Initial Sepsis Screen: Does the patient meet any 2 criteria? No. Patient's initial sepsis screen is negative. Does the patient have a suspected source of infection? No. Patient's initial sepsis screen is negative. Risk Assessment: Do you want to hurt yourself or someone else? Patient reports no desire to harm self or others. Onset of symptoms was December 20, 2023. 23:26 Method Of Arrival: Ambulatory al5 23:26 Acuity: OSMIN 4 al5 Triage Assessment: 23:29 General: Appears in no apparent distress. Behavior is calm, cooperative. Pain: al5 Complains of pain in bilateral knees. EENT: No deficits noted. No signs and/or symptoms were reported regarding the EENT system. Neuro: No deficits noted. Level of Consciousness is awake, alert, obeys commands, Oriented to person, place, time, situation. Cardiovascular: No deficits noted. Capillary refill < 3 seconds. Respiratory: Airway is patent Trachea midline Respiratory effort is even, unlabored, Respiratory pattern is regular, symmetrical. GI: No deficits noted. No signs and/or symptoms were reported involving the gastrointestinal system. : No deficits noted. No signs and/or symptoms were reported regarding the genitourinary system. Derm: No deficits noted. No signs and/or symptoms reported regarding the dermatologic system. Musculoskeletal: Reports pain in bilateral knees. Injury Description: jumped off [place] into the water and landed on her knees. Historical: - Home Meds: 23:27 metoprolol tartrate 50 mg Oral tab 1 tab 2 times per day [Active]; Lexapro 20 mg Oral al5 tab 1 tab once daily [Active]; trazodone 100 mg oral tablet 1 tab [Active]; - PMHx: 23:27 Anxiety; gallstone; Hypertensive disorder; al5 - PSHx: 23:27 section; Cholecystectomy; Tonsillectomy; al5 - Immunization history:: Adult Immunizations up to date. - Infectious Disease History:: Denies. - Social history:: Smoking status: Reported history of juuling and/or vaping. Screenin/05 00:05 [facility] ED Fall Risk Assessment (Adult) History of falling in the last 3 months, jj7 including since admission No falls in past 3 months (0 pts) Confusion or Disorientation No (0 pts) Intoxicated or Sedated No (0 pts) Impaired Gait No (0 pts) Mobility Assist Device Used No (0 pt) Altered Elimination No (0 pt) Score/Fall Risk Level 0 - 2 = Low Risk Oriented to surroundings, Maintained a safe environment, Educated pt \\T\\ family on fall prevention, incl call for assistance when getting out of bed. Abuse screen: Denies threats or abuse. Nutritional screening: No deficits noted. Tuberculosis screening: No symptoms or risk factors identified. Assessment: 00:05 General: Appears in no apparent distress. comfortable, Behavior is calm, cooperative, jj7 appropriate for age. Pain: Complains of pain in right and left knee. 00:05 Musculoskeletal: Reports pain in bilat knees. jj7 01:00 Reassessment: Patient appears in no apparent distress at this time. No changes from jw7 previously documented assessment. Patient and/or family updated on plan of care and expected duration. Pain level reassessed. Patient is alert, oriented x 3, equal unlabored respirations, skin warm/dry/pink. 02:00 Reassessment: Patient appears in no apparent distress at this time. Patient and/or jw7 family updated on plan of care and expected duration. Pain level reassessed. Patient is alert, oriented x 3, equal unlabored respirations, skin warm/dry/pink. Patient states feeling better. Vital Signs: 12/19 23:26 BP 163 / 60; Pulse 100; Resp 18; Temp 97.5(TE); Pulse Ox 98% ; Weight 84.82 kg; Height al5 5 ft. 5 in. ; Pain 10/10; 12/20 01:03 BP 127 / 87; Pulse 93; Resp 16 S; Pulse Ox 97% on R/A; jw7 02:00 BP 136 / 86; Pulse 93; Resp 16 S; Pulse Ox 99% on R/A; jw7 12/19 23:26 Body Mass Index 31.12 (84.82 kg, 165.1 cm) al5 12/19 23:26 Pain Scale: Adult al5 ED Course: 12/19 23:21 Patient arrived in ED. im 23:25 Roddy Franklin PA is PHCP. cp 23:25 Felix Spear MD is Attending Physician. cp 23:27 Triage completed. al5 23:31 Arm band placed on right wrist. Patient placed in an exam room, on a stretcher. al5 12/20 00:05 Patient has correct armband on for positive identification. Bed in low position. Side jj7 rails up X 1. Side rails up X2. Adult w/ patient. use of call white. Warm blanket given. 00:10 Provided Education on: Use of Call Light. jw7 00:58 XRAY Knee LEFT 3 view In Process Unspecified. EDMS 00:59 XRAY Knee RIGHT 3 view In Process Unspecified. EDMS 01:26 Scotty Barfield MD is Referral Physician. cp 01:55 Crutch training done. Knee immobilizer applied on left knee. rv1 02:11 No provider procedures requiring assistance completed. Patient did not have IV access jw7 during this emergency room visit. Administered Medications: 00:12 Drug: morphine IM 4 mg IM once Route: IM; Site: right deltoid; jj7 02:10 Follow up: Response: No adverse reaction; Marked relief of symptoms jw7 01:40 Drug: Ketorolac IM 60 mg IM once Route: IM; Site: right ventrogluteal; jw7 02:10 Follow up: Response: No adverse reaction; Marked relief of symptoms jw7 01:40 Drug: HYDROcodone-acetaminophen PO 10 mg-325 mg 1 tabs PO once Route: PO; jw7 02:11 Follow up: Response: No adverse reaction; Marked relief of symptoms jw7 Medication: 00:05 VIS not applicable for this client. jj7 Outcome: 01:26 Discharge ordered by . cp 02:11 Discharged to home with crutches, with family, jw7 02:11 Condition: stable 02:11 Discharge instructions given to patient, Instructed on discharge instructions, follow up and referral plans. medication usage, crutch walking, Demonstrated understanding of instructions, follow-up care, medications, crutch walking, Prescriptions given X 2, 02:13 Patient left the ED. jw7 Signatures: Dispatcher [employer] EDMS Roddy Franklin PA PA cp Waits, Jodi RN RN jw7 Jessica Cotter RN RN jj7 Candice Zimmerman rv1 Lyubov Fischer Amanda RN RN al5 Corrections: (The following items were deleted from the chart) 12/19 23:29 23:27 PSHx: "roopa kerr"; al5 al5 12/20 01:56 01:53 Crutch training done. Knee immobilizer applied on left knee. rv1 rv1 02:11 02:11 Discharge instructions given to patient, Instructed on discharge instructions, jw7 follow up and referral plans. medication usage, crutch walking, Demonstrated understanding of instructions, follow-up care, medications, crutch walking, Prescriptions given X 3, jw7
[2023-12-21] MEDS ORDERED: HYDROCODONE/APAP 10/325 TAB ONE (01:50)
[2023-12-21] MEDS ORDERED: KETOROLAC 30 MG/ML INJ ONE (01:50)
[2023-12-21 02:17] VITALS: TEMP 97.5
[2023-12-21 02:33] VITALS: BP 136/86; O2SAT 99
--- NOTE | 2023-12-21 12:10 | RAD REPORT ---
EXAM DESCRIPTION: Knee Left 3 View (accession [id number]), Knee Right 3 View (accession [id number]) 12/21/2023 1:18 AM CDT CLINICAL HISTORY: 38 years, Female, PAIN COMPARISON: None FINDINGS: 3 X-ray views of the right and left knee (frontal lateral and oblique views) were performe d. Bones: No areas of acute bony injuries were demonstrated. Soft tissues: No significant soft tissue swelling. Joints: There is no joint effusion. Others: There are no gross intraosseous lesions. No periosteal reaction were seen. IMPRESSION: No acute bony injuries were demonstrated. Electronically signed by: Huber Mullen MD 12/21/2023 01:19 AM CDT Due to temporary technical issues with the PACS/Fluency reporting system, reports are being signed by the in house radiologist without review as a courtesy to ensure prompt reporting. The interpreting r adiologist is fully responsible for the content of the report.
--- NOTE | 2023-12-21 12:12 | RAD REPORT ---
EXAM DESCRIPTION: Knee Left 3 View (accession [id number]), Knee Right 3 View (accession [id number]) 12/21/2023 1:18 AM CDT CLINICAL HISTORY: 38 years, Female, PAIN COMPARISON: None FINDINGS: 3 X-ray views of the right and left knee (frontal lateral and oblique views) were performe d. Bones: No areas of acute bony injuries were demonstrated. Soft tissues: No significant soft tissue swelling. Joints: There is no joint effusion. Others: There are no gross intraosseous lesions. No periosteal reaction were seen. IMPRESSION: No acute bony injuries were demonstrated. Electronically signed by: Huber Mullen MD 12/21/2023 01:19 AM CDT Due to temporary technical issues with the PACS/Fluency reporting system, reports are being signed by the in house radiologist without review as a courtesy to ensure prompt reporting. The interpreting r adiologist is fully responsible for the content of the report.
== END 2023-12-21 02:13 | disposition home or self-care (01) ==
LOC: ER 23:19
DX: M25.562 Pain in left knee (principal); M25.561 Pain in right knee
CPT/HCPCS: 96372; 99284